=== PATIENT | male | born 1975 | race Caucasian/White ===

== ENCOUNTER → 2017-12-20 12:49 | Outpatient (CLI) | payer BC, SELFPAY ==
--- NOTE | 2017-12-20 12:55 | RAD_ITS ---
STUDY: X-RAY CHEST REASON FOR EXAM: Male, 42 years old. Recently fighting a cold, bronchitis. History of lung cancer with right lobectomy 2011. TECHNIQUE: PA and lateral views of the chest. COMPARISON: Upright AP and lateral chest x-ray March 17, 2016. FINDINGS: Right peritracheal/medial upper lobe clips and sutures again noted. There is stable elevation of right diaphragm and right apical pleural thickening. Right suprahilar patchy density that may be chronic postsurgical change or crowding is stable. Density related to hypertrophic calcification at the left first costal cartilage again projects over the left apex on the frontal view. No new infiltrate. There is no demonstrated pleural abnormality. Normal size heart. Mild rightward shift of the upper mediastinum is unchanged. Normal visualized pulmonary arteries. Normal visualized aortic arch and descending thoracic aorta. Normal visualized thoracic spine. Normal visualized ribs, clavicles, and shoulders. There are numerous fluid levels in the area of the hepatic flexure, which may reflect liquid fecal material in the colon versus mild ileus. RAD/Chest PA and Lateral IMPRESSION: 1. Stable post surgical changes in the right hemithorax, as described. No new infiltrate. 2. Liquid fecal material in the colon at the hepatic flexure versus mild colonic ileus. Electronically Signed: Miguel Angel Bardales MD at 14:25 EDT , Service support ,
== END ==
PROVIDERS: Family Provider Family Medicine; PCP Family Medicine; Referring Provider Family Medicine; Visit Provider Family Medicine
DX: J45.909 Unspecified asthma, uncomplicated (principal)
CPT/HCPCS: 71046

== ENCOUNTER 2018-07-19 09:38 | Outpatient (RCR) | payer BC, SELFPAY ==
--- NOTE | 2018-07-19 12:18 | HP.PTEVAL ---
Patient's Visit Information LOUIE PETTIT is a 43 year old M referred to Physical Therapy by DEEP LUCIO with a diagnosis of MALIGNANT NEOPLASM OF RIGHT LUNG METASTIC ,PHYSICAL DECONDITIONING. Date of Evaluation: 07/19/18 Physical Therapist: Sathish Azar PT, Cert MDT, OCS - Visit Plan Frequency: 2x /Week Duration: 6 Weeks Plan: GRADED STRENGTHENING EXERCISES QUADS/HAMS/HIP,BLANCE PROGRAM,ENDURANCE ROGRAM - Subjective Findings: This 43 y/o male presents to physical therapy with malignant neoplasm of right lung metastic . Patient developed lung CA 9 years ago then metastsis to femur,hips,back and brain 201. Patient had lobectomy 2011,craniotomy 2013 to remove CA. Patient has been under extensive chemotherapy,radiation. Currently,takng one chemo pill. Patient has also had gamanive. Patient is currently experienced general weakness ,poor endurance impairs ADL'S ,housework tasks and job. Patient becomes SOB with general activity example steps at home. Denies parathesia/tingling. Patient slleping okay at night. Patient has C-PAP. Patientcurrent condition affects QOL and function. SOCIAL: . VOCATION: [employer] - Objective POSTURE: WFL. GAIT: reciprocal pattern mikld unsteady. NEURO: INTACT. BALANCE: good-. FLEXABLITY: mod tight hams. SLS: poor difficulty. MMT: quads/hams 4-/5,hip flexon /abd 4-/5 ,adia 4/5. STAIRS: alternating with rail - Balance Scores Functional Gait Assessment Score: 18 % Disability: 40.0000 CATSIB Score (Max score 120 seconds): 95 - Goals Goal 1:: Independant with HEP. Goal Time Frame: 4-6 Weeks Goal 2:: Improve functional endurance to good- with less SOB Goal Time Frame: 4-6 Weeks Goal 3:: Patient increase strength BLE 4/5 to improve function. Goal Time Frame: 4-6 Weeks Goal 4:: Patient improve functional gaits assessment score by 5-8 points to improve balance and gait Goal Time Frame: 4-6 Weeks Goal 5:: Patient to improve LFES score by 5-10 points to improve QOL. - Rehabilitation Potential Physical Therapy Diagnosis: This patient has multiple comorbities with lung CA with metastatic with poor endurance with [place] with activity ,weakness ,decrease balance impairs ADL's ,job demands ,housework tasks thus benifit from skilled PT. Rehabilitation Potential: Good - Anticipated Interventions Patient/Client Instruction: Educate patient on: Condition, Plan of Care For the Purpose of:: To improve muscle performance and motor function, To improve ability to perform ADL's, To increase tolerance to activity/condition/position, To improve performance and independence with ADL's, To improve ability of physical actions for home/community/work/leisure, To improve gait and locomotor functions, To improve ability to perform tasks related to life management Therapeutic Exercise to Include: Strength training, Endurance training, Balance training, Body mechanics, Flexibilty training For the Purpose of:: To decrease pain, To improve muscle performance and motor function, To improve ability to perform ADL's, To increase tolerance to activity/condition/position, To improve performance and independence with ADL's, To improve ability of physical actions for home/community/work/leisure, To improve gait and locomotor functions, To increase flexibility/ROM, To improve endurance, To improve ability to perform tasks related to life management Thank you for the opportunity to evaluate your patient. For Medicare and Medicare HMO plans, please review the plan of care and approve it. It will need to be FAXED BACK to us at [phone] for Medicare purposes. For Medicare only, by signing this I certify the plan of care. Please let me know if there are questions or concerns regarding this plan of care. Physician Signature: Date:
--- NOTE | 2018-09-19 09:57 | HP.PTDCNRP_ITS ---
HP - Discharge Summary (1) - Patient Information LOUIE PETTIT was seen in my office for initial evaluation on 07/19/18. The following Plan of Care was established for this patient: Initial Frequency: 2x /Week Initial Duration: 6 Weeks - Anticipated Interventions Patient/Client Instruction: Educate patient on: Condition, Plan of Care For the Purpose of:: To improve muscle performance and motor function, To improv e ability to perform ADL's, To increase tolerance to activity/condition/position, To improve performance and independence with ADL's, To improve ability of physical actions for home/community/work/leisure, To improve gait and locomotor functions, To improve ability to perform tasks related to life management Therapeutic Exercise to Include: Strength training, Endurance training, Balance training, Body mechanics, Flexibilty training For the Purpose of:: To decrease pain, To improve muscle performance and motor function, To improve ability to perform ADL's, To increase tolerance to activity/condition/position, To improve performance and independence with ADL's, To improve ability of physical actions for home/community/work/leisure, To improve gait and locomotor functions, To increase flexibility/ROM, To improve endurance, To improve ability to perform tasks related to life management This patient was last seen in our office . Pertinent comments regarding their Physical therapy will appear below: Patient was seen for PT for Intial PT evaluation for HEP received approval but didn't return. At this point I will be discontinuing this patient from physical therapy. I would be happy to see this patient again in the future if found appropriate by the physician. Thank you! Sathish Azar, PT, Cert MDT, OCS
== END 2018-07-19 19:00 | disposition home or self-care (01) ==
LOC: PT 09:38
PROVIDERS: Family Provider Family Medicine; PCP Family Medicine
DX: C34.91 Malignant neoplasm of unspecified part of right bronchus or lung (principal); R53.81 Other malaise
CPT/HCPCS: 97110; 97162

== ENCOUNTER → 2018-09-25 | Outpatient (CLI) | payer BC, SELFPAY ==
[2016-03-17 03:34] VITALS: BMI 47.1
== END | disposition home or self-care (01) ==
LOC: LABSPEC 09-26 10:23
PROVIDERS: Family Provider Family Medicine; PCP Family Medicine; Referring Provider Family Medicine; Visit Provider Family Medicine
DX: N39.0 Urinary tract infection, site not specified (principal)
CPT/HCPCS: 87077; 87086; 87088; 87186

== ENCOUNTER → 2019-04-17 | Outpatient (CLI) | payer BC, SELFPAY ==
[2019-04-17 09:55] LABS: Partial Thromboplast Time 38.6 Seconds (24.1-36.2)
== END | disposition home or self-care (01) ==
LOC: LAB 09:23
PROVIDERS: PCP Family Medicine
DX: R79.1 Abnormal coagulation profile (principal)
CPT/HCPCS: 36415; 85730

== ENCOUNTER → 2019-07-27 | Outpatient (CLI) | payer BC, SELFPAY ==
[2016-03-17 03:34] VITALS: BMI 47.1
[2019-07-27 09:40] LABS: Absolute Lymphocyte Count 0.98 X10^3/uL (0.83-4.51); Basophil# 0.02 X10^3/uL; Basophil% 0.6 % (0-1); Color, Urine Yellow (Yellow); Eosinophils% 2.9 % (0-5); Glucose, Dipstick Normal (Normal); Hematocrit 38.6 % (40-54); Hemoglobin 12.4 g/dL (13.0-16.5); Ketone-Dipstick Negative (Negative); Leukocyte Esterase-Dipstick 25 /ul (Negative); Lymphocyte # 0.98 X10^3/ul (4.0); Lymphocyte % 28.2 % (19-41); Mean Corp Hgb Conc 32.1 g/dL (32-36); Mean Corpuscular Hgb 31.3 pg (27.0-32.0); Mean Corpuscular Volume 97.5 fL (80-94); Mean Platelet Vol. 9.7 fl (6.2-12.0); Monocyte# 0.33 X10^3/uL; Monocyte% 9.5 % (0-10); NRBC Flagged by Analyzer 0 % (0-5); Neutrophil # 2.04 X10^3/uL (2.7-7.7); Neutrophil % 58.5 % (47-70); Nitrite-Dipstick Negative (Negative); Occult Blood-Urine Negative /ul (Negative); Platelet Count 182 K/mm3 (150-450); Protein-Dipstick Negative (Negative); RBC Distribution Width CV 13.1 % (11.6-14.6); RBC Distribution Width SD 46.4 fl (35.1-43.9); Red Blood Count 3.96 M/mm3 (4.6-6.2); Urine Bilirubin Dipstick Negative (Negative); Urine Clarity Sl. Cloudy (Clear); Urine Urobilinogen Normal (Normal); White Blood Count 3.5 K/mm3 (4.4-11.0)
[2019-07-27 10:12] LABS: ALB/GLOB Ratio 1.1 RATIO (0.9-2.4); AST(SGOT) 25 U/L (15-37); Alanine Aminotransfer ALT/SGPT 30 U/L (16-61); Albumin, Serum 3.9 g/dL (3.2-5.0); Alkaline Phosphatase 84 U/L (45-117); Anion Gap 5 (5-15); BUN 18 mg/dL (7-18); Calcium,Total 8.9 mg/dL (8.5-10.1); Chloride 111 mmol/L (98-107); EST Glomerular Filtration Rate 87 mL/min (>60); Est Glom Filt Rate - Afr Amer 105 mL/min (>60); Globulin 3.5 g/dL (2.2-4.2); Glucose 86 mg/dL (74-106); LDH 177 U/L (87-241); Magnesium 2.4 mg/dL (1.6-2.6); Phosphorus 3.8 mg/dL (2.5-4.9); Potassium 4.1 mmol/L (3.5-5.1); Protein, Total 7.4 g/dL (6.4-8.2); Sodium Level 146 mmol/L (136-145); Uric Acid 5.4 mg/dL (3.5-7.2)
== END | disposition home or self-care (01) ==
PROVIDERS: PCP Family Medicine
DX: C34.91 Malignant neoplasm of unspecified part of right bronchus or lung (principal); Z51.11 Encounter for antineoplastic chemotherapy; Z00.6 Encounter for examination for normal comparison and control in clinical research program
CPT/HCPCS: 36415; 80053; 81002; 83615; 83735; 84100; 84550; 85025

== ENCOUNTER → 2019-09-17 | Outpatient (CLI) | payer BC, SELFPAY ==
[2016-03-17 03:34] VITALS: BMI 47.1
[2019-09-17 08:21] LABS: Absolute Lymphocyte Count 1.17 X10^3/uL (0.83-4.51); Absolute Neutrophil Count 2.9 X10^3/uL (2.0-7.7); Basophil# 0.02 X10^3/uL; Basophil% 0.4 % (0-1); Eosinophil# 0.11 X10^3/uL; Eosinophils% 2.4 % (0-5); Hematocrit 37.8 % (40-54); Hemoglobin 12.1 g/dL (13.0-16.5); Lymphocyte # 1.17 X10^3/ul (4.0); Lymphocyte % 25.1 % (19-41); Mean Corpuscular Hgb 31.9 pg (27.0-32.0); Mean Corpuscular Volume 99.7 fL (80-94); Mean Platelet Vol. 9.9 fl (6.2-12.0); Monocyte# 0.44 X10^3/uL; Monocyte% 9.4 % (0-10); NRBC Flagged by Analyzer 0 % (0-5); Neutrophil # 2.92 X10^3/uL (2.7-7.7); Neutrophil % 62.5 % (47-70); Platelet Count 168 K/mm3 (150-450); RBC Distribution Width CV 13.2 % (11.6-14.6); RBC Distribution Width SD 46.8 fl (35.1-43.9); Red Blood Count 3.79 M/mm3 (4.6-6.2); White Blood Count 4.7 K/mm3 (4.4-11.0)
[2019-09-17 08:45] LABS: Color, Urine Yellow (Yellow); Glucose, Dipstick Normal (Normal); Ketone-Dipstick Negative (Negative); Leukocyte Esterase-Dipstick Negative /ul (Negative); Nitrite-Dipstick Negative (Negative); Occult Blood-Urine Negative /ul (Negative); Protein-Dipstick Negative (Negative); Urine Bilirubin Dipstick Negative (Negative); Urine Clarity Sl. Cloudy (Clear); Urine Urobilinogen Normal (Normal)
[2019-09-17 09:04] LABS: ALB/GLOB Ratio 1.1 RATIO (0.9-2.4); AST(SGOT) 21 U/L (15-37); Alanine Aminotransfer ALT/SGPT 29 U/L (16-61); Albumin, Serum 3.7 g/dL (3.2-5.0); Alkaline Phosphatase 82 U/L (45-117); Anion Gap 4 (5-15); BUN 13 mg/dL (7-18); BUN/Creat Ratio 11.9 RATIO (10-20); Calcium,Total 8.9 mg/dL (8.5-10.1); Chloride 108 mmol/L (98-107); Creatinine, Serum 1.09 mg/dL (0.70-1.30); EST Glomerular Filtration Rate 79 mL/min (>60); Est Glom Filt Rate - Afr Amer 95 mL/min (>60); Globulin 3.5 g/dL (2.2-4.2); Glucose 114 mg/dL (74-106); LDH 193 U/L (87-241); Magnesium 2.6 mg/dL (1.6-2.6); Phosphorus 4.1 mg/dL (2.5-4.9); Potassium 4.1 mmol/L (3.5-5.1); Protein, Total 7.2 g/dL (6.4-8.2); Sodium Level 140 mmol/L (136-145); Uric Acid 5.2 mg/dL (3.5-7.2)
== END | disposition home or self-care (01) ==
LOC: LAB 07:38
PROVIDERS: PCP Family Medicine
DX: C34.91 Malignant neoplasm of unspecified part of right bronchus or lung (principal)
CPT/HCPCS: 36415; 80053; 81002; 83615; 83735; 84100; 84550; 85025

== ENCOUNTER → 2020-01-07 16:48 | Outpatient (CLI) | payer BC, SELFPAY ==
[2016-03-17 03:34] VITALS: BMI 47.1
[2020-01-07 17:45] LABS: Absolute Lymphocyte Count 1.15 X10^3/uL (0.83-4.51); Absolute Neutrophil Count 2.8 X10^3/uL (2.0-7.7); Basophil# 0.03 X10^3/uL; Basophil% 0.7 % (0-1); Eosinophils% 2.2 % (0-5); Hematocrit 37.2 % (40-54); Lymphocyte # 1.15 X10^3/ul (4.0); Lymphocyte % 25.5 % (19-41); Mean Corp Hgb Conc 32.3 g/dL (32-36); Mean Corpuscular Hgb 32.4 pg (27.0-32.0); Mean Corpuscular Volume 100.5 fL (80-94); Mean Platelet Vol. 9.7 fl (6.2-12.0); Monocyte# 0.45 X10^3/uL; NRBC Flagged by Analyzer 0 % (0-5); Neutrophil # 2.77 X10^3/uL (2.7-7.7); Neutrophil % 61.4 % (47-70); Platelet Count 212 K/mm3 (150-450); RBC Distribution Width CV 12.5 % (11.6-14.6); RBC Distribution Width SD 45.9 fl (35.1-43.9); White Blood Count 4.5 K/mm3 (4.4-11.0)
[2020-01-07 18:10] LABS: Color, Urine Yellow (Yellow); Glucose, Dipstick Normal (Normal); Ketone-Dipstick Negative (Negative); Leukocyte Esterase-Dipstick 500 /ul (Negative); Nitrite-Dipstick Negative (Negative); Occult Blood-Urine Negative /ul (Negative); Protein-Dipstick Negative (Negative); Urine Bilirubin Dipstick Negative (Negative); Urine Clarity Sl. Cloudy (Clear); Urine Urobilinogen Normal (Normal)
[2020-01-07 18:23] LABS: AST(SGOT) 23 U/L (15-37); Alanine Aminotransfer ALT/SGPT 27 U/L (16-61); Albumin, Serum 3.8 g/dL (3.2-5.0); Anion Gap 7 (5-15); BUN/Creat Ratio 18.8 RATIO (10-20); EST Glomerular Filtration Rate 86 mL/min (>60); Est Glom Filt Rate - Afr Amer 104 mL/min (>60); Globulin 3.7 g/dL (2.2-4.2); Magnesium 2.5 mg/dL (1.6-2.6)
[2020-01-08 09:30] LABS: Alkaline Phosphatase 85 U/L (45-117); BUN 18 mg/dL (7-18); Calcium,Total 8.9 mg/dL (8.5-10.1); Chloride 111 mmol/L (98-107); Creatinine, Serum 1.02 mg/dL (0.70-1.30); Glucose 85 mg/dL (74-106); LDH 221 U/L (87-241); Phosphorus 3.5 mg/dL (2.5-4.9); Potassium 4.7 mmol/L (3.5-5.1); Protein, Total 7.6 g/dL (6.4-8.2); Sodium Level 144 mmol/L (136-145); Uric Acid 5.9 mg/dL (3.5-7.2)
== END ==
PROVIDERS: PCP Family Medicine
DX: Z51.11 Encounter for antineoplastic chemotherapy (principal); Z00.6 Encounter for examination for normal comparison and control in clinical research program
CPT/HCPCS: 36415; 80053; 81002; 83615; 83625; 83735; 84100; 84550; 85025; 85049

== ENCOUNTER → 2021-01-30 10:57 | Outpatient (CLI) | payer BC, SELFPAY ==
[2021-01-30 12:18] LABS: Color, Urine Yellow (Yellow); Glucose, Dipstick Normal (Normal); Hematocrit 33.3 % (40-54); Hemoglobin 10.9 g/dL (13.0-16.5); Ketone-Dipstick Negative (Negative); Leukocyte Esterase-Dipstick Negative /ul (Negative); Mean Corp Hgb Conc 32.7 g/dL (32-36); Mean Corpuscular Hgb 31.8 pg (27.0-32.0); Mean Corpuscular Volume 97.1 fL (80-94); Mean Platelet Vol. 9.8 fl (6.2-12.0); Nitrite-Dipstick Negative (Negative); Occult Blood-Urine Negative /ul (Negative); Platelet Count 173 K/mm3 (150-450); Protein-Dipstick Negative (Negative); RBC Distribution Width CV 12.6 % (11.6-14.6); RBC Distribution Width SD 44.3 fl (35.1-43.9); Red Blood Count 3.43 M/mm3 (4.6-6.2); Urine Bilirubin Dipstick Negative (Negative); Urine Clarity Sl. Cloudy (Clear); Urine Urobilinogen Normal (Normal)
[2021-01-30 12:50] LABS: Vitamin B12 298 pg/mL (211-911)
[2021-01-30 13:00] LABS: AST(SGOT) 25 U/L (15-37); Alanine Aminotransfer ALT/SGPT 30 U/L (16-61); Albumin, Serum 3.9 g/dL (3.2-5.0); Alkaline Phosphatase 72 U/L (45-117); Anion Gap 4 (5-15); BUN 16 mg/dL (7-18); BUN/Creat Ratio 15.5 RATIO (10-20); Calcium,Total 9.1 mg/dL (8.5-10.1); Chloride 104 mmol/L (98-107); Creatinine, Serum 1.03 mg/dL (0.70-1.30); EST Glomerular Filtration Rate 83 mL/min (>60); Est Glom Filt Rate - Afr Amer 101 mL/min (>60); Globulin 3.8 g/dL (2.2-4.2); Glucose 87 mg/dL (74-106); Magnesium 2.5 mg/dL (1.6-2.6); Phosphorus 4.1 mg/dL (2.5-4.9); Potassium 4.2 mmol/L (3.5-5.1); Protein, Total 7.7 g/dL (6.4-8.2); Sodium Level 140 mmol/L (136-145); Uric Acid 5.7 mg/dL (3.5-7.2)
== END ==
PROVIDERS: PCP Family Medicine
DX: C34.91 Malignant neoplasm of unspecified part of right bronchus or lung (principal); Z00.6 Encounter for examination for normal comparison and control in clinical research program
CPT/HCPCS: 36415; 80053; 81002; 82607; 82746; 83735; 84100; 84550; 85027

== ENCOUNTER 2021-03-26 10:03 | Outpatient (CLI) | payer BC, SELFPAY ==
[2021-03-26 13:56] LABS: Anion Gap 5 (5-15); Chloride 107 mmol/L (98-107); Potassium 4.4 mmol/L (3.5-5.1); Sodium Level 141 mmol/L (136-145)
== END 2021-03-26 23:59 | disposition short-term general hospital (02) ==
LOC: LAB 10:07
PROVIDERS: PCP Family Medicine; Referring Provider Internal Medicine Pulmonary Disease; Visit Provider Internal Medicine Pulmonary Disease
DX: G47.33 Obstructive sleep apnea (adult) (pediatric) (principal)
CPT/HCPCS: 36415; 80051

== ENCOUNTER 2021-08-05 17:46 | Emergency (ER) | payer BC, SELFPAY ==
[2021-08-05 17:48] VITALS: BP 119/69; PULSE 86; RESP 16; TEMP 36.2; O2SAT 98; BMI 51.7
[2021-08-05 18:43] LABS: Mucous, Urine 0 SEEN /hpf (<or=2+); Red Blood Cells-Urine 0 SEEN /hpf (0-5)
--- NOTE | 2021-08-05 18:50 | RAD_ITS ---
STUDY: X-RAY CHEST REASON FOR EXAM: Male, 46 years old. CAD TECHNIQUE: 1 view COMPARISON:12/20/2017 FINDINGS: Persistent opacification of the right mid to lower hemithorax. Stable volume loss in the right lung. These are unchanged. Left lung clear. Cardiac silhouette is grossly unchanged. Multilevel thoracic spondylosis. RAD/Chest 1 View (Portable) IMPRESSION: No significant interval change Electronically Signed: Tanmay Truong MD at 19:20 EDT ,
[2021-08-05 18:51] LABS: Absolute Lymphocyte Count 1.29 X10^3/uL (0.83-4.51); Absolute Neutrophil Count 2.9 X10^3/uL (2.0-7.7); Basophil# 0.02 X10^3/uL; Basophil% 0.4 % (0-1); Eosinophil# 0.09 X10^3/uL; Eosinophils% 1.9 % (0-5); Hemoglobin 10.9 g/dL (13.0-16.5); Lymphocyte # 1.29 X10^3/ul (0.83-4.51); Lymphocyte % 26.5 % (19-41); Mean Corpuscular Volume 96.8 fL (80-94); Mean Platelet Vol. 10.2 fl (6.2-12.0); Monocyte# 0.54 X10^3/uL; Monocyte% 11.1 % (0-10); NRBC Flagged by Analyzer 0 % (0-5); Neutrophil % 59.7 % (47-70); Platelet Count 196 K/mm3 (150-450); RBC Distribution Width CV 12.4 % (11.6-14.6); RBC Distribution Width SD 43.7 fl (35.1-43.9); Red Blood Count 3.41 M/mm3 (4.6-6.2); White Blood Count 4.9 K/mm3 (4.4-11.0)
[2021-08-05 18:53] LABS: Color, Urine Yellow (Yellow); Glucose, Dipstick Normal (Normal); Ketone-Dipstick Negative (Negative); Leukocyte Esterase-Dipstick Negative /ul (Negative); Nitrite-Dipstick Negative (Negative); Occult Blood-Urine Negative /ul (Negative); Protein-Dipstick Negative (Negative); Specific Gravity, Urine 1.015 (1.002-1.030); Urine Bilirubin Dipstick Negative (Negative); Urine Clarity Clear (Clear); Urine Urobilinogen Normal (Normal)
[2021-08-05 19:11] LABS: Bacteria RARE /hpf (None Seen); Squamous Epithelial Cells - UA 0-5 SEEN /hpf (0-5); White Blood Cells 0-5 SEEN /hpf (0-5)
--- NOTE | 2021-08-05 19:20 | EDS_ITS ---
HPI History of Present Illness Chief Complaint: General Illness Narrative Narrative: Patient presents with his father because of visual hallucinations that he has been having over the last week and a half. His father relates history that the patient has known lung carcinoma with metastasis to the brain. He is in a study at the [facility] and is seen by oncologist at the [facility]. Over the last few days when they were on a trip to [place], patient expressed that he saw horses running through a field that were not there. Additionally, he asked his father who the people were standing close to him, and father states that there was no one else present. The last time he had visual hallucinations was when he was on dexamethasone years ago. Patient denies any headache. No metabolic symptoms. He denies any dysuria or hematuria. No fever or chills. No cough. No headaches. His father states that they spoke with the oncology nurse at the office and were told to come to the emergency department for a work-up to see the cause of his visual hallucinations. He used to take Lamictal and Keppra for seizures, but they recently stopped the Lamictal secondary to tremors. Additionally, he is on a study chemotherapy drug. They were told that the medication changes should not affect him and cause him to have any visual hallucinations. [facility] Medical History Lung cancer metastatic to brain Home Medications Entrectinib 200 mg PO TID 08/23/15 [History Last Taken Unknown] calcium carbonate-vitamin D3 1 tab PO DAILY 08/23/15 [History Last Taken Unknown] potassium chloride [K-Dur] 2 tab PO DAILY 08/23/15 [History Last Taken Unknown] levetiracetam 1,500 mg PO BREAKFAST 02/23/16 [History Last Taken Unknown] levetiracetam 2,000 mg PO QHS 08/05/21 [History Last Taken Unknown] omeprazole 20 mg PO DAILY 08/05/21 [History Last Taken Unknown] Allergy/AdvReac Type Severity Reaction Status Date / Time diclofenac [Diclofenac] Allergy Unknown Verified 08/05/21 17:47 diphenhydramine HCl Allergy Unknown Verified 08/05/21 17:47 [From Benadryl] shellfish derived Allergy Unknown Verified 08/05/21 17:47 Social History Smoking Status: Never smoker ROS ROS ED ROS Narrative Constitutional: No fever, no chills. HEENT: No sore throat. No neck pain. No loss of vision. No rhinorrhea. Cardiovascular: No chest pain. No palpitations. No pedal edema. Respiratory: No cough, no shortness of breath. Abdominal: No abdominal pain. No nausea. No vomiting. Genitourinary: No dysuria. No hematuria. Musculoskeletal: No myalgias. No arthralgias. Neurologic: No headaches. No dizziness. No lightheadedness. Skin: No rash. No change in color. Psychiatric: No depression. No anxiety. Visual hallucinations. EXAM Physical Exam Narrative Exam Narrative: Afebrile. Vital signs noted. HEENT: Normocephalic. Atraumatic. PERRL, EOMI. Neck soft and supple. No point tenderness or step off. Cardiovascular: Regular rate and rhythm. No murmurs, rubs, or gallops appreciated. Respiratory: No tachypnea. Lungs clear to auscultation bilaterally. Gastrointestinal: Abdomen soft, nontender, with normoactive bowel sounds. No rebound or guarding. Neurological: Awake. Alert. Nonfocal, nonlateralizing. At baseline per father. Skin: No rash. Normal color. No pallor. Musculoskeletal: No pedal edema. Full range of motion extremities. Const Vital Signs: 08/05/21 17:48 08/05/21 18:07 Temperature 97.2 F L Temperature Source Temporal Pulse Rate 86 Respiratory Rate 16 Respiratory Effort Normal Non-Labored Blood Pressure 119/69 Blood Pressure Mean 85 Pulse Ox 98 Oxygen Delivery Method Room Air MDM MDM MDM Narrative Medical decision making narrative: Metabolic work-up was pursued. I lengthy discussion with the patient and his father. His father is very reluctant to have him have a CT of the brain because he states that he has MRI scans every 2 months. CBC is grossly normal with a normal white count of 4.9, hemoglobin slightly anemic at 10.9, normal platelet count of 196. Urinalysis shows no evidence of infection. Chest x-ray of by myself shows no acute process. CMP shows chloride elevated at 108 with normal anion gap of 6, BUN slightly elevated at 19 with a creatinine of 1.0. LFTs are grossly unremarkable. I had a lengthy discussion with the patient and his father. He has had multiple imaging studies. It was decided that CT of the brain was not indicated because there is no emergent cause. I do not think that he has a bleeding metastasis. Additionally, he had an MRI of the brain 2 weeks ago, and his symptoms began 1 week ago. He is not eliciting any signs of hemorrhagic stroke, and his neurological examination is nonfocal and nonlateralizing. At this point in time, he would like to be discharged. I did discuss with the GI fellow who is covering oncology services at [facility] the work-up. He agreed that this is reasonable, and that the patient should follow-up with his oncologist tomorrow. Return instructions to the emergency department were reviewed. Disposition is discharged home in stable condition. Lab Data Attestation: I reviewed the patient's lab results. Labs: Laboratory Results - last 24 hr 08/05/21 08/05/21 08/05/21 18:29 18:39 18:39 WBC 4.9 RBC 3.41 L Hgb 10.9 L Hct 33.0 L MCV 96.8 H MCH 32.0 MCHC 33.0 RDW Std Deviation 43.7 RDW Coeff of Maryse 12.4 Plt Count 196 MPV 10.2 Immature Gran % (Auto) 0.400 Neut % (Auto) 59.7 Lymph % (Auto) 26.5 Citrus % (Auto) 11.1 H Eos % (Auto) 1.9 Baso % (Auto) 0.4 Absolute Neuts (auto) 2.9 Absolute Lymphs (auto) 1.29 Nucleated RBC % 0 Sodium 143 Potassium 4.5 Chloride 108 H Carbon Dioxide 29.0 Anion Gap 6 BUN 19 H Creatinine 1.08 Estim Creat Clear Calc 87.28 Est GFR (MDRD) Af Amer 95 Est GFR (MDRD) Non-Af 79 BUN/Creatinine Ratio 17.6 Glucose 91 Calcium 9.0 Total Bilirubin 0.40 AST 35 ALT 39 Alkaline Phosphatase 75 Total Protein 7.6 Albumin 3.9 Globulin 3.7 Albumin/Globulin Ratio 1.1 Urine Color Yellow Urine Clarity Clear Urine pH 6.0 Ur Specific [place] 1.015 Urine Protein Negative Urine Glucose (UA) Normal Urine Ketones Negative Urine Occult Blood Negative Urine Nitrite Negative Urine Bilirubin Negative Urine Urobilinogen Normal Ur Leukocyte Esterase Negative Urine RBC 0 SEEN Urine WBC 0-5 SEEN Ur Squamous Epith Cells 0-5 SEEN Urine Bacteria RARE Urine Mucus 0 SEEN Radiography Diagnostic Testing: Clinical Impression(s) from Imaging Studies Chest X-Ray 08/05/21 18:50 IMPRESSION: No significant interval change Electronically Signed: Tanmay Truong MD at 19:20 EDT , Discharge Plan Triage Chief Complaint: General Illness ED Provider: Roddy Ward Dx/Rx/DC Orders Clinical Impression: Visual hallucinations, Carcinoma of lung, Brain metastases Instructions: ED Confusion Prescriptions: No Action potassium chloride [Klor-Con M20] 20 MEQ tablet 2 tab PO DAILY RF: 0 calcium carbonate-vitamin D3 1 EACH tablet 1 tab PO DAILY RF: 0 Entrectinib 200 mg PO TID RF: 0 levetiracetam 500 MG tablet 1,500 mg PO BREAKFAST RF: 0 omeprazole 20 mg Capsule,Delayed Release(Dr/Ec) 20 mg PO DAILY RF: 0 levetiracetam 1,000 mg Tablet 2,000 mg PO QHS RF: 0 Primary Care Provider: Med Llanes Referrals: Med Llanes MD [Primary Care Provider] - Activity Restrictions/Additional Instructions: There is no apparent cause for your visual hallucinations that you were experiencing. Your laboratory work was grossly unremarkable. There were no signs of infection. Follow-up with the Sathish tomorrow. Call your oncologist. Disposition Disposition: Home, Self Care
[2021-08-05 19:27] LABS: ALB/GLOB Ratio 1.1 RATIO (0.9-2.4); AST(SGOT) 35 U/L (15-37); Alanine Aminotransfer ALT/SGPT 39 U/L (16-61); Albumin, Serum 3.9 g/dL (3.2-5.0); Alkaline Phosphatase 75 U/L (45-117); Anion Gap 6 (5-15); BUN 19 mg/dL (7-18); BUN/Creat Ratio 17.6 RATIO (10-20); Chloride 108 mmol/L (98-107); Creatinine, Serum 1.08 mg/dL (0.70-1.30); EST Glomerular Filtration Rate 79 mL/min (>60); Est Glom Filt Rate - Afr Amer 95 mL/min (>60); Estimated Creatinine Clearance 87.28 ml/min; Globulin 3.7 g/dL (2.2-4.2); Glucose 91 mg/dL (74-106); Potassium 4.5 mmol/L (3.5-5.1); Protein, Total 7.6 g/dL (6.4-8.2); Sodium Level 143 mmol/L (136-145)
== END 2021-08-05 19:52 | disposition home or self-care (01) ==
PROVIDERS: Emergency Provider Emergency Medicine; PCP Family Medicine; Visit Provider Emergency Medicine
DX: R44.1 Visual hallucinations (principal); C79.31 Secondary malignant neoplasm of brain; C34.90 Malignant neoplasm of unspecified part of unspecified bronchus or lung; R56.9 Unspecified convulsions; Z79.899 Other long term (current) drug therapy
CPT/HCPCS: 71045; 80053; 81001; 85025; 96360; 99282; J7030; A4216

== ENCOUNTER 2021-10-01 15:49 | Emergency (ER) | payer BC, SELFPAY ==
[2021-10-01 15:50] VITALS: BP 120/74; PULSE 82; RESP 16; TEMP 36.4; O2SAT 98; BMI 36.4
--- NOTE | 2021-10-01 16:05 | CT_ITS ---
STUDY: CT BRAIN WITHOUT CONTRAST REASON FOR EXAM: Male, 46 years old. head injury RADIATION DOSAGE (If Supplied By Facility): CTDIvol = ( 44.99 ) mGy, DLP = ( 762.36 ) mGycm TECHNIQUE: Transaxial CT imaging of the brain was performed without administration of intravenous contrast material. Individualized dose optimization techniques were used for this CT. COMPARISON: No relevant priors. FINDINGS: Normal soft tissue structures. Postop change status post right frontal parietal craniectomy and right occipital craniotomy There is diffuse hypoattenuation in the right parietal lobe which has the appearance of vasogenic edema without well-defined focal mass.. There is prominent calcification which appears vascular in the right occipital lobe and to a lesser extent the left occipital lobe. Normal size ventricles and extra-axial spaces for the patient''s age. Normal white matter tracts of the cerebral hemispheres. 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 Normal brainstem. Hypoattenuation in the right cerebellar hemisphere likely postsurgical encephalomalacia There is no intracranial hemorrhage. There are no findings of an acute ischemic infarction. Normal visualized paranasal sinuses. CT/Brain/Head without Contrast IMPRESSION: Findings consistent with probable right cerebellar postsurgical encephalomalacia Vasogenic edema in the right parietal lobe without well-defined mass Apparent tubular vascular calcification in the occipital lobes more pronounced on the right of indeterminate etiology. No evidence for acute bleed Electronically Signed: Eddie Roman MD at 17:18 EDT ,
--- NOTE | 2021-10-01 16:05 | EDS_ITS ---
HPI <SANTA Garg - Last Filed: 10/01/21 17:41> History of Present Illness Chief Complaint: Head Injury Narrative Narrative: 46-year-old male with history of lung cancer that spread to his brain who is currently receiving brain cancer treatment at [facility] presents the emergency department after mechanical fall. Patient was in the bathroom, he believes he slipped, falling forward striking his left front part of his head on the floor. Patient states he was dazed however he did not have any loss of consciousness. Patient also complains of neck pain as well. Patient denies any blood thinners at this time. Patient is acting appropriate per the father. PFS <SANTA Garg - Last Filed: 10/01/21 17:41> [facility] Medical History (Updated 10/01/21 @ 17:41 by SANTA Garg) Lung cancer metastatic to brain Seizure Home Medications Entrectinib 200 mg PO TID 08/23/15 [History Last Taken Unknown] calcium carbonate 600 mg-vitamin D3 20 mcg (800 unit) tablet 1 tab PO DAILY 08/23/15 [History Last Taken Unknown] potassium chloride 20 mEq tablet,extended release(part/cryst) (Klor-Con M) 2 tab PO DAILY 08/23/15 [History Last Taken Unknown] levetiracetam 500 mg tablet 1,500 mg PO BREAKFAST 02/23/16 [History Last Taken Unknown] levetiracetam 1,000 mg tablet 2,000 mg PO QHS 08/05/21 [History Last Taken Unknown] omeprazole 20 mg capsule,delayed release 20 mg PO DAILY 08/05/21 [History Last Taken Unknown] Allergy/AdvReac Type Severity Reaction Status Date / Time diclofenac [Diclofenac] Allergy Unknown Verified 10/01/21 15:49 diphenhydramine HCl Allergy Unknown Verified 10/01/21 15:49 [From Benadryl] shellfish derived Allergy Unknown Verified 10/01/21 15:49 Surgical History (Updated 10/01/21 @ 16:17 by Nandini Shaw) History of brain surgery Social History Smoking Status: Never smoker ROS <SANTA Garg - Last Filed: 10/01/21 17:41> ROS ED ROS Narrative Constitutional: Negative for fever, chills, weight loss, weakness Eyes: Negative for vision loss, vision change, double vision ENT: Negative for any sore throat, ear pain, congestion Cardiovascular: Negative for any chest pain, tightness, palpitations Respiratory: Negative for any cough, sputum production, hemoptysis, dyspnea, dyspnea on exertion, orthopnea Gastrointestinal: Negative for any abdominal pain, nausea, vomiting, diarrhea, constipation, blood in stool, blood in vomit : Negative for any urinary frequency, dysuria, retention, blood in urine Muscle skeletal: Negative for any muscle joint pain, stiffness, myalgias, arthralgias, back pain. Positive for neck pain Neurological: Negative for any syncope, numbness or tingling, dizziness. Positive for headache Skin: Negative for any rashes, lumps, itching, abrasions, lacerations Psychiatric: Negative for any depression, anxiety, stress, suicidal ideation, homicidal ideation Hematologic: Negative for any easy bruising, excessive bruising, easy bleeding Allergies: Negative for any eczema, hives, rash EXAM <SANTA Garg - Last Filed: 10/01/21 17:41> Physical Exam Narrative Exam Narrative: Vital signs reviewed. Patient alert orient x4. HEET: Head normocephalic atraumatic, TMs clear bilaterally. Posterior pharynx is clear, moist mucous membranes. Nares clear bilaterally. No evidence of ecchymosis, edema. Pupils are equal round reactive to light, the left eye does show some lazy eye however this is chronic. Neck: Supple with no lymphadenopathy or tenderness. No signs of meningismus, negative jolt sign. Full range of motion of the neck. Negative for any midline spinal tenderness. Cardiac: Regular rate and rhythm no murmurs gallops or rubs, equal peripheral pulses bilaterally. Respiratory: Lungs clear to auscultation bilaterally. No chest tenderness. Abdomen: Soft, nontender, nondistended. No abdominal bruit or pulsatile masses. No hepatosplenomegaly Extremities: No peripheral edema, no signs of gross trauma or deformity. Active full range of motion of all extremities. Neuro: Cranial nerves II through XII intact, no focal neurological deficits. Skin: Clean dry and intact with no rash, purpura, petechiae, vesicles or pustules. Backs/flank: No CVA tenderness, no midline spinal tenderness, no deformity. Psych: Normal mood and affect. No SI, HI or acute psychosis. Const Vital Signs: 10/01/21 15:50 10/01/21 16:18 Temperature 97.5 F L Temperature Source Temporal Pulse Rate 82 Respiratory Rate 16 Respiratory Effort Normal Respiratory Depth Normal Respiratory Pattern Normal Blood Pressure 120/74 Blood Pressure Mean 89 Pulse Ox 98 Oxygen Delivery Method Room Air Room Air Positive well nourished and well developed General Appearance ED: well developed <Dr. Kuldeep Snell DO - Last Filed: 10/01/21 17:48> Physical Exam Const Vital Signs: 10/01/21 15:50 10/01/21 16:18 Temperature 97.5 F L Temperature Source Temporal Pulse Rate 82 Respiratory Rate 16 Respiratory Effort Normal Respiratory Depth Normal Respiratory Pattern Normal Blood Pressure 120/74 Blood Pressure Mean 89 Pulse Ox 98 Oxygen Delivery Method Room Air Room Air MDM <SANTA Garg - Last Filed: 10/01/21 17:41> MDM Radiography Diagnostic Testing: Clinical Impression(s) from Imaging Studies Brain CT 10/01/21 16:05 IMPRESSION: Findings consistent with probable right cerebellar postsurgical encephalomalacia Vasogenic edema in the right parietal lobe without well-defined mass Apparent tubular vascular calcification in the occipital lobes more pronounced on the right of indeterminate etiology. No evidence for acute bleed Electronically Signed: Eddie Roman MD at 17:18 EDT , Cervical Spine CT 10/01/21 16:05 IMPRESSION: Normal unenhanced CT examination of the cervical spine. Electronically Signed: Eddie Roman MD at 17:18 EDT , Treatment and Re-Evaluation Narrative: Patient appears well, patient appears nontoxic, vital signs are stable. Patient presents the [facility] apartment after a fall, head injury and due to the patient having brain cancer is here for imaging. Patient did receive a CT of the brain, cute bleed however patient does have chronic findings. Patient CT of the cervical spine shows a normal unenhanced CT examination of the cervical spine. Patient was offered analgesia however refused. At this time, there is no evidence of any intracranial hemorrhage, skull fracture. Patient will be discharged home, given concussion instructions, follow-up with his oncologist at [facility]. Patient is happy with the plan of care and strict return for any worsening symptoms. <Dr. Kuldeep Snell, DO - Last Filed: 10/01/21 17:48> [facility] Narrative Medical decision making narrative: I have personally performed a face to face assessment of the patient and have reviewed the WANDY Note. I performed a substantive portion of the visit including all aspects of the following. My hunter findings include: History is [patient presents to the emergency department after sustaining a fall this morning in the bathroom approximately 8 AM. Patient's father states that he has trouble with balance normally because he has a history of lung cancer with brain metastasis. Patient try to catch himself with his hands but thinks he hit the front of his head either on the floor the cabinets leading to the floor. He called his oncologist and was advised to be seen in the emergency department. He complains of a frontal headache and some mild discomfort in the back of his neck. He denies any paresthesias to his extremities. He denies any significant injuries to his arms or legs or chest.] Exam is [HEENT-PERRLA, EOMI. Cranial nerves II through XII grossly intact. TMs clear. Mucous membranes moist. No adenopathy. No external evidence of trauma to his head. Patient has some mild diffuse tenderness to the C-spine. No bony step-offs noted. Good range of motion. Cardiovascular-regular rate and rhythm without murmur or ectopy Lungs-clear to auscultation, chest wall stable without crepitus or subcu emphysema Abdomen-normoactive bowel sounds, soft, and nontender. Extremities-intact ?4, normal range of motion, normal pulses, atraumatic] Medical Decison Making [patient was seen in conjunction with physician teaching assistant. At this point his CT of the brain and C-spine were unremarkable. He can be safely discharged to home. Patient to follow-up with his primary care physician in 3 to 5 days.] Other additions or changes: [None] Radiography Diagnostic Testing: Clinical Impression(s) from Imaging Studies Brain CT 10/01/21 16:05 IMPRESSION: Findings consistent with probable right cerebellar postsurgical encephalomalacia Vasogenic edema in the right parietal lobe without well-defined mass Apparent tubular vascular calcification in the occipital lobes more pronounced on the right of indeterminate etiology. No evidence for acute bleed Electronically Signed: Eddie Roman MD at 17:18 EDT , Cervical Spine CT 10/01/21 16:05 IMPRESSION: Normal unenhanced CT examination of the cervical spine. Electronically Signed: Eddie Roman MD at 17:18 EDT , Discharge Plan Triage Chief Complaint: Head Injury ED Midlevel Provider: Ritchie Porras ED Provider: Kuldeep Snell Dx/Rx/DC Orders Clinical Impression: Fall, Closed head injury, Concussion, Cervical muscle strain, History of brain cancer Instructions: After a Concussion, ED Head Injury (Adult), ED Neck Sprain or Strain Prescriptions: No Action potassium chloride [Klor-Con M20] 20 MEQ tablet 2 tab PO DAILY calcium carbonate-vitamin D3 1 EACH tablet 1 tab PO DAILY Entrectinib 200 mg PO TID levetiracetam 500 MG tablet 1,500 mg PO BREAKFAST omeprazole 20 mg Capsule,Delayed Release(Dr/Ec) 20 mg PO DAILY levetiracetam 1,000 mg Tablet 2,000 mg PO QHS Primary Care Provider: Med Llanes Referrals: Med Llanes MD [Primary Care Provider] - 3-5 Days Activity Restrictions/Additional Instructions: Please follow-up outpatient. Print Language: Lao Disposition Disposition: Home, Self Care
--- NOTE | 2021-10-01 16:05 | CT_ITS ---
STUDY: CT CERVICAL SPINE WITHOUT CONTRAST REASON FOR EXAM: Male, 46 years old. fall, neck pain RADIATION DOSAGE (If Supplied By Facility): CTDIvol = ( 26.79 ) mGy, DLP = ( 513.35 ) mGycm TECHNIQUE: High resolution transaxial imaging was performed without contrast material. Sagittal and coronal images were reconstructed. Individualized dose optimization techniques were used for this CT. COMPARISON: None FINDINGS: Normal craniovertebral junction. Normal anterior atlantoaxial articulation. Normal odontoid process. Normal cervical lordosis. Normal vertebral bodies and posterior osseous elements. C2-3: Normal endplates. Normal disc height and morphology. Normal central canal and intervertebral neuroforamina. C3-4: Normal endplates. Normal disc height and morphology. Normal central canal and intervertebral neuroforamina. C4-5: Normal endplates. Normal disc height and morphology. Normal central canal and intervertebral neuroforamina. C5-6: Normal endplates. Normal disc height and morphology. Normal central canal and intervertebral neuroforamina. C6-7: Normal endplates. Normal disc height and morphology. Normal central canal and intervertebral neuroforamina. C7-T1: Normal endplates. Normal disc height and morphology. Normal central canal and intervertebral neuroforamina. Normal visualized soft tissue structures. CT/Spine Cervical without Contras IMPRESSION: Normal unenhanced CT examination of the cervical spine. Electronically Signed: Eddie Roman MD at 17:18 EDT ,
[2021-10-01 17:46] VITALS: BP 115/63; PULSE 86; RESP 18; O2SAT 92
== END 2021-10-01 17:56 | disposition home or self-care (01) ==
PROVIDERS: Emergency Provider Emergency Medicine; PCP Family Medicine; Visit Provider Emergency Medicine
DX: S06.0X0A Concussion without loss of consciousness, initial encounter (principal); C79.31 Secondary malignant neoplasm of brain; R56.9 Unspecified convulsions; S16.1XXA Strain of muscle, fascia and tendon at neck level, initial encounter; W01.198A Fall on same level from slipping, tripping and stumbling with subsequent striking against other object, initial encounter; Z79.899 Other long term (current) drug therapy; Z85.118 Personal history of other malignant neoplasm of bronchus and lung
CPT/HCPCS: 70450; 72125; 99282

== ENCOUNTER 2021-10-05 13:52 | Inpatient (IN) | payer BC, SELFPAY ==
[2021-10-05 13:53] VITALS: BP 94/58; PULSE 91; RESP 16; TEMP 36.4; O2SAT 99; BMI 39.1
--- NOTE | 2021-10-05 14:17 | EKG12_ITS ---
Test Reason : dysrhythmia Blood Pressure : / mmHG Vent. Rate : 087 BPM Atrial Rate : 087 BPM P-R Int : 182 ms QRS Dur : 078 ms QT Int : 370 ms P-R-T Axes : 034 023 047 degrees QTc Int : 445 ms Normal sinus rhythm Low voltage QRS Confirmed by MARY MARIN, DONATO ([id number]), commercial production editor DAVID MILLER ([id number]) on 10/07/2021 12:46:41 PM Referred By: Confirmed By:DONATO HERNANDEZ MD
--- NOTE | 2021-10-05 14:35 | RAD_ITS ---
STUDY: X-RAY CHEST REASON FOR EXAM: Male, 46 years old. Stroke TECHNIQUE: Single AP portable view of the chest. COMPARISON: Comparison is made with prior examination dated 08/05/2021. FINDINGS: Stable marked elevation of the right hemidiaphragm. Stable right apical pleural thickening. Surgical clips are seen in the right hilar region. The left lung is clear. Normal size heart. Normal mediastinum and shell. Normal visualized pulmonary arteries. Normal visualized aortic arch and descending thoracic aorta. Normal visualized thoracic spine. Normal visualized ribs, clavicles, and shoulders. There is no demonstrated abnormality of the visualized soft tissue structures of the upper abdomen. RAD/Chest 1 View (Portable) IMPRESSION: Elevation of the right hemidiaphragm with stable right apical pleural thickening. Surgical clips are seen in the right hilar region. Electronically Signed: Frederick Escobedo MD at 14:56 EDT ,
[2021-10-05 14:41] LABS: Absolute Lymphocyte Count 0.98 X10^3/uL (0.83-4.51); Absolute Neutrophil Count 2.9 X10^3/uL (2.0-7.7); Basophil# 0.01 X10^3/uL; Basophil% 0.2 % (0-1); Eosinophil# 0.12 X10^3/uL; Eosinophils% 2.7 % (0-5); Hematocrit 33.2 % (40-54); Hemoglobin 11.1 g/dL (13.0-16.5); Lymphocyte # 0.98 X10^3/ul (0.83-4.51); Lymphocyte % 22.2 % (19-41); Mean Corp Hgb Conc 33.4 g/dL (32-36); Mean Corpuscular Volume 95.7 fL (80-94); Mean Platelet Vol. 9.8 fl (6.2-12.0); Monocyte# 0.38 X10^3/uL; Monocyte% 8.6 % (0-10); NRBC Flagged by Analyzer 0 % (0-5); Neutrophil % 65.8 % (47-70); Platelet Count 171 K/mm3 (150-450); RBC Distribution Width CV 12.3 % (11.6-14.6); RBC Distribution Width SD 42.2 fl (35.1-43.9); Red Blood Count 3.47 M/mm3 (4.6-6.2); White Blood Count 4.4 K/mm3 (4.4-11.0)
[2021-10-05 14:48] LABS: Prothrombin Time (Protime)PT. 13.1 SECONDS (11.7-14.9)
[2021-10-05 14:49] LABS: Partial Thromboplast Time 40.9 Seconds (24.1-36.2)
[2021-10-05 14:56] VITALS: O2SAT 98
[2021-10-05 14:56] LABS: Anion Gap 3 (5-15); BUN 16 mg/dL (7-18); BUN/Creat Ratio 14.5 RATIO (10-20); Calcium,Total 8.9 mg/dL (8.5-10.1); Chloride 106 mmol/L (98-107); EST Glomerular Filtration Rate 77 mL/min (>60); Est Glom Filt Rate - Afr Amer 93 mL/min (>60); Estimated Creatinine Clearance 80.12 ml/min; Glucose 104 mg/dL (74-106); Potassium 4.3 mmol/L (3.5-5.1); Sodium Level 142 mmol/L (136-145)
--- NOTE | 2021-10-05 15:12 | EX.ED.DYSGE1 ---
HPI History of Present Illness Chief Complaint: Confusion Narrative Narrative: 46-year-old male with history of lung cancer with mets to the brain currently on chemotherapy orally presenting with confusion, per patient. Apparently the patient had a fall about a week ago and hit his head and sustained a small bruise. Patient's caregiver states that on 09 30 he had some seizure-like symptoms with some slurred speech and difficulty forming words. He has generally slow speech. He states that he has continued to have a headache and general is a little bit slow. He walks with a walker at baseline and has not had any changes with his baseline ambulation with a walker although he does exhibit some confusion. His caregiver states that he wants to walk to the bathroom with his walker and he appeared to be walking at baseline and then as he entered the bathroom he stopped and became confused and after few seconds move forward. He states that he is also been stating that he wants to go home. He gives the address of his childhood upbringing. He is also repeatedly asked when friends are over why they are here. It is noted that he had some of this cognitive confusion and similar symptoms when he had adrenal insufficiency. His cortisol levels are very low. His caregiver states that when he was in the hospital for brain cancer they kept giving him dexamethasone. They thought this was helping with the brain cancer however he states that is causing adrenal insufficiency. He states he was given manmade cortisol and this helped his symptoms. Patient has a neurologist at [facility] named . [facility] Medical History Lung cancer metastatic to brain Seizure Home Medications Entrectinib 200 mg PO BID chemotherapy 08/23/15 [History Last Taken 10/05/21] calcium carbonate 600 mg-vitamin D3 20 mcg (800 unit) tablet 2 tab PO DAILY supplement 08/23/15 [History Last Taken 10/04/21] potassium chloride 20 mEq tablet,extended release(part/cryst) (Klor-Con M) 2 tab PO DAILY supplement 08/23/15 [History Last Taken 10/05/21] levetiracetam 500 mg tablet 1,500 mg PO BREAKFAST seizures 02/23/16 [History Last Taken 10/05/21] levetiracetam 1,000 mg tablet 2,000 mg PO QHS seizures 08/05/21 [History Last Taken 10/04/21] omeprazole 20 mg capsule,delayed release 20 mg PO DAILY GERD 08/05/21 [History Last Taken 10/05/21] Allergy/AdvReac Type Severity Reaction Status Date / Time diclofenac [Diclofenac] Allergy Unknown Verified 10/05/21 13:55 diphenhydramine HCl Allergy Unknown Verified 10/05/21 13:55 [From Benadryl] shellfish derived Allergy Unknown Verified 10/05/21 13:55 Surgical History History of brain surgery Social History Smoking Status: Never smoker ROS ROS ED Constitutional Constitutional ED: Denies chills or fever(s) Eyes Eyes: Denies change in vision ENT ENT ED: Denies rhinorrhea or sore throat Cardiovascular Cardiovascular: Denies chest pain or palpitations Respiratory/Chest Respiratory/Chest: Denies cough or dyspnea Gastrointestinal Gastrointestinal: Denies abdominal pain or constipation Genitourinary Genitourinary ED: Denies dysuria or hematuria Musculoskeletal Musculoskeletal: Denies arthralgias or back pain Neurologic Neurologic: Reports headache(s) and other Details: Perseverating. Confused. ; Denies paresthesias Psychiatric Psychiatric: Denies anxiety or depression EXAM Physical Exam Const Vital Signs: 10/05/21 13:53 10/05/21 14:56 10/05/21 18:18 Temperature 97.6 F L Temperature Source Temporal Pulse Rate 91 77 Respiratory Rate 16 17 Blood Pressure 94/58 L 128/74 H Blood Pressure Mean 70 92 Pulse Ox 99 98 98 Oxygen Delivery Method Room Air Room Air Room Air Positive well nourished General Appearance ED: NAD; Negative for pallor HEENT Reports moist mucous membranes Negative for trauma Eyes PERRL and EOMs intact bilaterally Chest Wall inspection of chest normal Resp normal respiratory effort and clear to auscultation bilaterally Auscultation: Negative for rales, rhonchi or wheezes Cardio regular rate and regular rhythm GI normal to inspection, nondistended, normoactive bowel sounds Extremity normal to inspection Neuro oriented x3 and CN's II-XII intact bilaterally Sensorium / Orientation: alert Motor Exam: strength 5/5 throughout Skin no rashes or lesions noted General Skin Exam: Negative for jaundice or pallor MDM MDM MDM Narrative Medical decision making narrative: Patient was seen and evaluated on arrival for confusion. I reviewed the medical record I did see that his CT scan showed he had some right-sided vasogenic edema on his previous CT scan. I repeated the CT scan today does not show any significant interval change. Based on the history of the slurred speech and the confusion I suspect a likely source of seizure which may be subclinical. He has not had any tonic-clonic seizures, but he does have a history of seizure and is on Keppra. I obtained blood work and his CBC and BMP are unremarkable. PT and INR normal. TSH is normal. After discussing with the patient with his family they wanted to check a cortisol level which was obtained and is low at 2.60. At this point I did speak with the hospitalist who recommended transfer. I spoke with neurooncology at [facility] at length. They were concerned for subclinical seizure as well and recommended transfer so that he can have continuous EEG. He will need an MRI as well. I did discuss the cortisol level with neurology and they stated that it was about 3.4 at the last check. They were unable to find any endocrinology notes. Chest x-ray on my interpretation does not show any acute cardiopulmonary process and the radiologist agree. Discussed all findings with patient and his family. They are amenable to transfer. Impression: 1. Breakthrough seizure 2. Confusion 3. Low cortisol 4. Vasogenic edema sign 5. Perseveration Lab Data Attestation: I reviewed the patient's lab results. Labs: Laboratory Results - last 24 hr 10/05/21 10/05/21 10/05/21 14:30 14:30 14:30 WBC 4.4 RBC 3.47 L Hgb 11.1 L Hct 33.2 L MCV 95.7 H MCH 32.0 MCHC 33.4 RDW Std Deviation 42.2 RDW Coeff of Maryse 12.3 Plt Count 171 MPV 9.8 Immature Gran % (Auto) 0.500 Neut % (Auto) 65.8 Lymph % (Auto) 22.2 [place] % (Auto) 8.6 Eos % (Auto) 2.7 Baso % (Auto) 0.2 Absolute Neuts (auto) 2.9 Absolute Lymphs (auto) 0.98 Nucleated RBC % 0 PT 13.1 INR 1.0 APTT 40.9 H Sodium 142 Potassium 4.3 Chloride 106 Carbon Dioxide 33.0 H Anion Gap 3 L BUN 16 Creatinine 1.10 Estim Creat Clear Calc 80.12 Est GFR (MDRD) Af Amer 93 Est GFR (MDRD) Non-Af 77 BUN/Creatinine Ratio 14.5 Glucose 104 Calcium 8.9 TSH Cortisol 10/05/21 10/05/21 14:30 14:30 WBC RBC Hgb Hct MCV MCH MCHC RDW Std Deviation RDW Coeff of Maryse Plt Count MPV Immature Gran % (Auto) Neut % (Auto) Lymph % (Auto) [place] % (Auto) Eos % (Auto) Baso % (Auto) Absolute Neuts (auto) Absolute Lymphs (auto) Nucleated RBC % PT INR APTT Sodium Potassium Chloride Carbon Dioxide Anion Gap BUN Creatinine Estim Creat Clear Calc Est GFR (MDRD) Af Amer Est GFR (MDRD) Non-Af BUN/Creatinine Ratio Glucose Calcium TSH 1.31 Cortisol 2.60 L Radiography Diagnostic Testing: Clinical Impression(s) from Imaging Studies Chest X-Ray 10/05/21 14:35 IMPRESSION: Elevation of the right hemidiaphragm with stable right apical pleural thickening. Surgical clips are seen in the right hilar region. Electronically Signed: Frederick Escobedo MD at 14:56 EDT , Brain CT 10/05/21 15:41 IMPRESSION: No significant interval change compared to recent prior. Large region of low attenuation in the right posterior parietal and occipital lobe. Smaller region of low attenuation in the left frontal lobe. Recommend MRI without and with contrast to assess for metastases or other etiologies of edema. Electronically Signed: Lauren Terrell MD at 16:40 EDT , Discharge Plan Triage Chief Complaint: Confusion ED Provider: Natalio Alves Dx/Rx/DC Orders Prescriptions: No Action potassium chloride [Klor-Con M20] 20 MEQ tablet 2 tab PO DAILY calcium carbonate-vitamin D3 1 EACH tablet 2 tab PO DAILY Entrectinib 200 mg PO BID levetiracetam 500 MG tablet 1,500 mg PO BREAKFAST omeprazole 20 mg Capsule,Delayed Release(Dr/Ec) 20 mg PO DAILY levetiracetam 1,000 mg Tablet 2,000 mg PO QHS Primary Care Provider: Med Llanes Referrals: Med Llanes MD [Primary Care Provider] -
--- NOTE | 2021-10-05 15:41 | CT_ITS ---
HISTORY: headache, increased confusion, weakness, history of lung cancer with brain and bone metastases. TECHNIQUE: Multiple axial images were obtained of the head without intravenous contrast. A radiation dose optimization technique was used for this scan. 244 images. COMPARISON: 10/01/2021. 03/17/2016 FINDINGS: BRAIN PARENCHYMA: Large region of low attenuation probable vasogenic edema in the right parietal occipital lobe again seen. Small region of low attenuation in the left posterior frontal lobe again seen. Small calcification in the left frontal lobe more anteriorly. Cortical serpiginous calcification of the occipital lobes again seen. Old right capsular lacunar infarct. Right cerebellar encephalomalacia. No acute intra-axial hemorrhage. CSF SPACES: Mild generalized volume loss. No midline shift or other significant mass effect. No acute extra-axial hemorrhage. CALVARIUM: Right temporal and occipital craniotomies. PARANASAL SINUSES AND MASTOID AIR CELLS: Mild fluid in the left mastoid air cells. ORBITS: Unremarkable. CT/Brain/Head without Contrast IMPRESSION: No significant interval change compared to recent prior. Large region of low attenuation in the right posterior parietal and occipital lobe. Smaller region of low attenuation in the left frontal lobe. Recommend MRI without and with contrast to assess for metastases or other etiologies of edema. Electronically Signed: Lauren Terrell MD at 16:40 EDT ,
--- NOTE | 2021-10-05 15:42 | NURSING ---
DR RODRIGUEZ FOR DR SENA
[2021-10-05 16:16] LABS: Thyroid Stim Hormone (TSH) 1.31 uIU/mL (0.358-3.74)
--- NOTE | 2021-10-05 16:18 | NURSING ---
[id number] CALLED [facility], ON HOLD OVER 10 MIN
--- NOTE | 2021-10-05 16:19 | NURSING ---
CALLED [facility], TALKED TO DEDE
[2021-10-05 18:18] VITALS: BP 128/74; PULSE 77; RESP 17; O2SAT 98
--- NOTE | 2021-10-05 20:14 | NURSING ---
CALLED [facility] AT 8PM ON UPDATE, THEY SAID HE IS ACCEPTED HOWEVER THEY DO NOT THINK HE WILL HAVE A BED ASSIGNMENT TILL AT LEAST TOMORROW.
[2021-10-05 21:42] VITALS: BP 139/88; PULSE 96; RESP 16; O2SAT 98
[2021-10-05] MEDS: levETIRAcetam 1,000 MG Tablet 2000 MG PO (21:42)
[2021-10-06] VITALS (26 sets, daily range): BP systolic 91–135; BP diastolic 56–94; PULSE 78–106; RESP 12–23; TEMP 35.6–36.9; O2SAT 92–99; BMI 35.9
--- NOTE | 2021-10-06 07:32 | ED.RN ---
PER [place] WITH [facility]. LONGEST PT HAS BEEN WAITING ON A BED SINCE 09/28/21. THEY ARE ON A [employer] WIDE DIVERSION PLAN. THIS PT WILL HAVE A LONG WAIT. CAN WE ADMIT HERE
--- NOTE | 2021-10-06 07:39 | ED.RN ---
Pt sleeping at this time.
--- NOTE | 2021-10-06 07:57 | PCM.HP.STD ---
[facility] - General General Date of Admission: 10/06/21 Date of Service: 10/06/21 Chief Complaint: Generalized weakness. HPI Narrative LOUIE PETTIT, is a 46 M with past medical history significant for lung CA diagnosed over 10 years ago currently on chemo with mets to the bone and the brain, history of previous steroid induced adrenal insufficiency who presents with increasing confusion and falls. History was taken from the patient's father who was by the bedside. Per patient's dad patient has been experiencing progressive symptoms over the past 4 days. In addition to patient being confused, patient's father did notice patient has been slow in responding and has experienced episodic confusion. Patient apparently also did complain of headaches. Patient father also thought patient had seizure-like activity. In view of the progressive nature of his symptoms patient was brought to the emergency department, CT head did show large region of low attenuation probable vasogenic edema in the right parietal occipital lobe again seen.? Small region of low attenuation in the left posterior frontal lobe again seen.? Small calcification in the left frontal lobe more anteriorly.? Corticalserpiginous calcification of the occipital lobes again seen.? 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 Right cerebellar encephalomalacia.? No acute intra-axial hemorrhage.. Call was placed to [facility] for patient to be transferred bed was however not available. Decision was made to admit patient to the [facility] inpatient service pending transfer. Patient's father was aware of the risk while patient is waiting to be transferred to [facility]. [facility] Medical History (Updated 10/06/21 @ 11:[address] Beau Portillo MD) CPAP (continuous positive airway pressure) dependence Lung cancer metastatic to brain Seizure Sleep apnea Home Medications Entrectinib 200 mg PO BID chemotherapy 08/23/15 [History Last Taken 10/05/21] calcium carbonate 600 mg-vitamin D3 20 mcg (800 unit) tablet 2 tab PO DAILY supplement 08/23/15 [History Last Taken 10/04/21] potassium chloride 20 mEq tablet,extended release(part/cryst) (Klor-Con M) 2 tab PO DAILY supplement 08/23/15 [History Last Taken 10/05/21] levetiracetam 500 mg tablet 1,500 mg PO BREAKFAST seizures 02/23/16 [History Last Taken 10/05/21] levetiracetam 1,000 mg tablet 2,000 mg PO QHS seizures 08/05/21 [History Last Taken 10/04/21] omeprazole 20 mg capsule,delayed release 20 mg PO DAILY GERD 08/05/21 [History Last Taken 10/05/21] Allergy/AdvReac Type Severity Reaction Status Date / Time diclofenac [Diclofenac] Allergy Unknown Verified 10/05/21 13:55 diphenhydramine HCl Allergy Unknown Verified 10/05/21 13:55 [From Benadryl] shellfish derived Allergy Unknown Verified 10/05/21 13:55 Family History (Updated 10/06/21 @ 11:[address] Beau Portillo MD) Uncle Cancer Surgical History History of brain surgery Social History Smoking Status: Never smoker ROS ROS Narrative GENERAL: Progressive generalized weakness HEENT: headache, RESPIRATORY: denies cough, sputum production, CARDIAC: denies chest pain, palpitations, orthopnea, PND GASTROINTESTINAL: denies abdominal pain, nausea, vomiting, melena, GENITOURINARY: denies dysuria, urgency, frequency, heamaturia EXTREMITY: denies swelling MUSCULOSKELETAL: denies current joint pain or tenderness NEUROLOGIC: denies focal numbness, weakness, tingling HEMATOLOGIC: denies easy bruising and/or hemorrhage INTEGUMENT: denies rashes PSYCHIATRIC: denies suicidal or homicidal ideation Vital Signs Vital Signs Vital Signs: 10/05/21 13:53 10/05/21 14:56 10/05/21 18:18 Temperature 97.6 F L Temperature Source Temporal Pulse Rate 91 77 Respiratory Rate 16 17 Blood Pressure 94/58 L 128/74 H Blood Pressure Mean 70 92 Pulse Ox 99 98 98 Oxygen Delivery Method Room Air Room Air Room Air 10/05/21 21:42 10/06/21 01:54 10/06/21 03:41 Temperature 98.4 F Temperature Source Oral Pulse Rate 96 95 95 Respiratory Rate 16 17 16 Blood Pressure 139/88 H 135/88 H 104/56 L Blood Pressure Mean 105 103 72 Pulse Ox 98 98 95 Oxygen Delivery Method Room Air Room Air Room Air 10/06/21 04:00 10/06/21 05:00 10/06/21 06:00 Temperature Temperature Source Pulse Rate 84 83 78 Respiratory Rate 14 14 12 Blood Pressure 110/68 Blood Pressure Mean 82 Pulse Ox 96 97 96 Oxygen Delivery Method Room Air Room Air Room Air 10/06/21 07:39 Temperature Temperature Source Pulse Rate 79 Respiratory Rate 18 Blood Pressure Blood Pressure Mean Pulse Ox 94 Oxygen Delivery Method Room Air Weight Weight: 113.398 kg Body Mass Index (BMI) 39.1 Physical Exam Narrative GENERAL: Patient is slow to respond HEENT: Atraumatic; EYES; Anicteric, Normal Conjunctiva NECK; supple, normal thyroid, RESPIRATORY: Diminished to auscultation CARDIOVASCULAR: Regular S1 S2, GI: soft, normoactive bowel sounds, : No Renal angle tenderness; EXTREMITIES: No edema, no clubbing, MUSCULOSKELETAL: no muscle wasting NEURO: Awake; no lateralizing signs. SKIN: No Rash PSYCH; Flat affect Results Lab / Micro Data Result Diagrams: 10/05/21 14:30 10/05/21 14:30 Labs: Laboratory Results - last 24 hr 10/05/21 14:30: WBC 4.4, RBC 3.47 L, Hgb 11.1 L, Hct 33.2 L, MCV 95.7 H, MCH 32.0, MCHC 33.4, RDW Std Deviation 42.2, RDW Coeff of Maryse 12.3, Plt Count 171, MPV 9.8, Immature Gran % (Auto) 0.500, Neut % (Auto) 65.8, Lymph % (Auto) 22.2, Chase % (Auto) 8.6, Eos % (Auto) 2.7, Baso % (Auto) 0.2, Absolute Neuts (auto) 2.9, Absolute Lymphs (auto) 0.98, Nucleated RBC % 0 10/05/21 14:30: PT 13.1, INR 1.0, APTT 40.9 H 10/05/21 14:30: Sodium 142, Potassium 4.3, Chloride 106, Carbon Dioxide 33.0 H, Anion Gap 3 L, BUN 16, Creatinine 1.10, Estim Creat Clear Calc 80.12, Est GFR (MDRD) Af Amer 93, Est GFR (MDRD) Non-Af 77, BUN/Creatinine Ratio 14.5, Glucose 104, Calcium 8.9 10/05/21 14:30: Cortisol 2.60 L 10/05/21 14:30: TSH 1.31 Radiology Impression Chest X-Ray 10/05/21 14:35 IMPRESSION: Elevation of the right hemidiaphragm with stable right apical pleural thickening. Surgical clips are seen in the right hilar region. Electronically Signed: Frederick Escobedo MD at 14:56 EDT , Brain CT 10/05/21 15:41 IMPRESSION: No significant interval change compared to recent prior. Large region of low attenuation in the right posterior parietal and occipital lobe. Smaller region of low attenuation in the left frontal lobe. Recommend MRI without and with contrast to assess for metastases or other etiologies of edema. Electronically Signed: Lauren Terrell MD at 16:40 EDT , Assessment & Plan Assessment/Plan (1) Lung cancer metastatic to brain: PLAN: Plan LOUIE PETTIT, is a 46 M with past medical history significant for lung CA diagnosed over 10 years ago currently on chemo with mets to the bone and the brain, history of previous steroid induced adrenal insufficiency who presents with increasing confusion and falls. CT obtained did not show large region of low attenuation probable vasogenic edema in the right parietal occipital lobe again seen.? Small region of low attenuation in the left posterior frontal lobe again seen.? Small calcification in the left frontal lobe more anteriorly.? Corticalserpiginous calcification of the occipital lobes again seen.? 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 Right cerebellar encephalomalacia.? No acute intra-axial hemorrhage.. Call was placed to [facility] for patient to be transferred bed was however not available. Decision was made to admit patient to the [facility] inpatient service pending transfer. Patient's father was aware of the risk while patient is waiting to be transferred to [facility]. 1. Acute encephalopathy ? Secondary to brain mets with vasogenic edema. Plan is for patient to be transferred to [facility] pending bed availability. In the meantime patient has been admitted to the intensive care unit where he is currently receiving high-dose steroids 2. Chronic steroid induced adrenal insufficiency ? Patient cortisol on admission was 2.6. Admitted to the intensive care unit and started on hydrocortisone 100 mg x 1 followed by 50 mg every 6 hours 3. Lung CA ? With mets to the brain and the bone. Currently on Entrectinib 4. Seizure disorder ? Patient is on Keppra did continue 5. GERD ? Patient is on PPI 6. Obesity class II with cushingoid features ? Secondary to chronic steroid use weight loss advised 7. DVT prophylaxis ? Enoxaparin 40 mg SC daily Advance planning; did discuss with the patient and family (patient's father) regarding advanced directives as well as CODE STATUS. Did explain the various scenarios involved ( FULL CODE, DNR CCA, DNR CCA with no intubation, and DNR CC and what each meant) family and patient elected to remain full code with CPR and intubation if warranted. Order was placed. Time spent on discussion 18 minutes. Charges/Coding Visit Charges Inpatient E&M: 58841 Init Hosp L3 Procedures Hospitalists Procedures: 08563 Advncd Care Plan 30 Min
--- NOTE | 2021-10-06 09:19 | CASEMGMT ---
Tertiary facilities in-network with patient's insurance: [facility], [facility], [facility], [place], , [facility], [facility], [facility], [facility].
[2021-10-06] MEDS: Enoxaparin 40 MG/0.4 ML Syringe SC (09:46)
[2021-10-06] MEDS: Hydrocortisone Sod Succinate 100 MG/2 ML Vial IV (09:46)
[2021-10-06] MEDS: Calcium Carb/Vitamin D 1 TABLET Tablet 2 TABLET PO (09:46)
[2021-10-06] MEDS: Potassium Chloride Oral Tablet 20 MEQ 40 MEQ PO (09:47)
[2021-10-06] MEDS: Pantoprazole Sodium 20 MG Tablet PO (09:47)
[2021-10-06] MEDS: levETIRAcetam 750 MG Tablet 1500 MG PO (09:47)
[2021-10-06 12:04] LABS: Absolute Lymphocyte Count 0.81 X10^3/uL (0.83-4.51); Absolute Neutrophil Count 3.3 X10^3/uL (2.0-7.7); Basophil# 0.02 X10^3/uL; Basophil% 0.5 % (0-1); Eosinophil# 0.08 X10^3/uL; Eosinophils% 1.8 % (0-5); Hematocrit 34.7 % (40-54); Hemoglobin 11.1 g/dL (13.0-16.5); Lymphocyte # 0.81 X10^3/ul (0.83-4.51); Lymphocyte % 18.3 % (19-41); Mean Corpuscular Hgb 32.3 pg (27.0-32.0); Mean Corpuscular Volume 100.9 fL (80-94); Mean Platelet Vol. 9.9 fl (6.2-12.0); Monocyte# 0.21 X10^3/uL; Monocyte% 4.8 % (0-10); NRBC Flagged by Analyzer 0 % (0-5); Neutrophil # 3.29 X10^3/uL (2.7-7.7); Neutrophil % 74.4 % (47-70); POSITIVE COUNT YES; Platelet Count 123 K/mm3 (150-450); RBC Distribution Width CV 12.3 % (11.6-14.6); Red Blood Count 3.44 M/mm3 (4.6-6.2); White Blood Count 4.4 K/mm3 (4.4-11.0)
[2021-10-06 12:27] LABS: AST(SGOT) 24 U/L (15-37); Alanine Aminotransfer ALT/SGPT 26 U/L (16-61); Albumin, Serum 3.4 g/dL (3.2-5.0); Alkaline Phosphatase 63 U/L (45-117); Anion Gap 1 (5-15); BUN 13 mg/dL (7-18); Calcium,Total 8.8 mg/dL (8.5-10.1); Chloride 111 mmol/L (98-107); Creatinine, Serum 0.87 mg/dL (0.70-1.30); EST Glomerular Filtration Rate 101 mL/min (>60); Est Glom Filt Rate - Afr Amer 123 mL/min (>60); Estimated Creatinine Clearance 108.35 ml/min; Globulin 3.4 g/dL (2.2-4.2); Glucose 110 mg/dL (74-106); Magnesium 2.1 mg/dL (1.6-2.6); Potassium 4.1 mmol/L (3.5-5.1); Protein, Total 6.8 g/dL (6.4-8.2); Sodium Level 140 mmol/L (136-145)
[2021-10-06 12:31] LABS: Differential Indicated SCAN CRITERIA MET
[2021-10-06 12:33] LABS: Macrocytosis 1+; Platelet Estimate ADEQUATE (ADEQ)
[2021-10-06] MEDS: Hydrocortisone Sod Succinate 100 MG/2 ML Vial 50 MG IV ×3 (13:35→23:02)
[2021-10-06] MEDS: levETIRAcetam 1,000 MG Tablet 2000 MG PO (22:40)
[2021-10-06] MEDS: 0.9% Saline Lock 10 ML Syringe IV (22:46)
[2021-10-07] VITALS (15 sets, daily range): BP systolic 96–140; BP diastolic 55–93; PULSE 71–108; RESP 12–20; TEMP 35.7–36.6; O2SAT 93–100
[2021-10-07 04:55] LABS: Absolute Lymphocyte Count 0.84 X10^3/uL (0.83-4.51); Absolute Neutrophil Count 5.5 X10^3/uL (2.0-7.7); Basophil# 0.01 X10^3/uL; Basophil% 0.1 % (0-1); Eosinophil# 0.01 X10^3/uL; Eosinophils% 0.1 % (0-5); Hemoglobin 10.7 g/dL (13.0-16.5); Lymphocyte # 0.84 X10^3/ul (0.83-4.51); Lymphocyte % 12.4 % (19-41); Mean Corp Hgb Conc 33.4 g/dL (32-36); Mean Corpuscular Hgb 31.9 pg (27.0-32.0); Mean Corpuscular Volume 95.5 fL (80-94); Monocyte# 0.36 X10^3/uL; Monocyte% 5.3 % (0-10); NRBC Flagged by Analyzer 0 % (0-5); Neutrophil % 81.7 % (47-70); Platelet Count 165 K/mm3 (150-450); RBC Distribution Width CV 12.4 % (11.6-14.6); RBC Distribution Width SD 43.1 fl (35.1-43.9); Red Blood Count 3.35 M/mm3 (4.6-6.2); White Blood Count 6.8 K/mm3 (4.4-11.0)
[2021-10-07 05:17] LABS: Anion Gap 1 (5-15); BUN 13 mg/dL (7-18); BUN/Creat Ratio 13.6 RATIO (10-20); Calcium,Total 8.7 mg/dL (8.5-10.1); Chloride 112 mmol/L (98-107); Creatinine, Serum 0.96 mg/dL (0.70-1.30); EST Glomerular Filtration Rate 90 mL/min (>60); Est Glom Filt Rate - Afr Amer 109 mL/min (>60); Estimated Creatinine Clearance 98.19 ml/min; Glucose 146 mg/dL (74-106); Magnesium 2.3 mg/dL (1.6-2.6); Potassium 4.1 mmol/L (3.5-5.1); Sodium Level 143 mmol/L (136-145)
[2021-10-07] MEDS: Hydrocortisone Sod Succinate 100 MG/2 ML Vial 50 MG IV ×4 (05:30→23:05)
--- NOTE | 2021-10-07 07:14 | PN.HOSP_ITS ---
Subjective Subjective Patient seen continues to experience intermittent confusion. No seizures following admission to the intensive care unit. Awaiting bed prior to transfer to [facility] Objective Data Objective Data Vital Signs: Vital Signs Temp Pulse Resp BP Pulse Ox O2 Del Method 97.5 F L 95 16 111/63 98 CPAP 10/07/21 04:00 10/07/21 06:00 10/07/21 06:00 10/07/21 06:00 10/07/21 06:00 10/07/21 06:00 Oxygen Delivery Method CPAP Weight: 111.5 kg Body Mass Index (BMI) 35.9 Intake & Output: Intake and Output for Last 24 Hours 10/05/21 10/06/21 10/07/21 23:59 23:59 23:59 Intake Total 480 / 480 Balance 480 / 480 Lab / Micro Data Result Diagrams: 10/07/21 04:40 10/07/21 04:40 Labs: Laboratory Results - last 24 hr 10/06/21 11:51: WBC 4.4, RBC 3.44 L, Hgb 11.1 L, Hct 34.7 L, MCV 100.9 H D, MCH 32.3 H, MCHC 32.0, RDW Std Deviation 45.0 H, RDW Coeff of Maryse 12.3, Plt Count 123 L, MPV 9.9, Immature Gran % (Auto) 0.200, Neut % (Auto) 74.4 H, Lymph % (Auto) 18.3 L, Alfalfa % (Auto) 4.8, Eos % (Auto) 1.8, Baso % (Auto) 0.5, Absolute Neuts (auto) 3.3, Absolute Lymphs (auto) 0.81 L, Nucleated RBC % 0, Platelet Estimate ADEQUATE, Macrocytosis 1+ 10/06/21 11:51: Sodium 140, Potassium 4.1, Chloride 111 H, Carbon Dioxide 28.0, Anion Gap 1 L, BUN 13, Creatinine 0.87, Estim Creat Clear Calc 108.35, Est GFR (MDRD) Af Amer 123, Est GFR (MDRD) Non-Af 101, BUN/Creatinine Ratio 15.0, Glucose 110 H, Calcium 8.8, Magnesium 2.1, Total Bilirubin 0.30, AST 24, ALT 26, Alkaline Phosphatase 63, Total Protein 6.8, Albumin 3.4, Globulin 3.4, Albumin/Globulin Ratio 1.0 10/07/21 04:40: WBC 6.8, RBC 3.35 L, Hgb 10.7 L, Hct 32.0 L, MCV 95.5 H D, MCH 31.9, MCHC 33.4, RDW Std Deviation 43.1, RDW Coeff of Maryse 12.4, Plt Count 165, MPV 10.0, Immature Gran % (Auto) 0.400, Neut % (Auto) 81.7 H, Lymph % (Auto) 12.4 L, Alfalfa % (Auto) 5.3, Eos % (Auto) 0.1, Baso % (Auto) 0.1, Absolute Neuts (auto) 5.5, Absolute Lymphs (auto) 0.84, Nucleated RBC % 0 10/07/21 04:40: Sodium 143, Potassium 4.1, Chloride 112 H, Carbon Dioxide 30.0, Anion Gap 1 L, BUN 13, Creatinine 0.96, Estim Creat Clear Calc 98.19, Est GFR (MDRD) Af Amer 109, Est GFR (MDRD) Non-Af 90, BUN/Creatinine Ratio 13.6, Glucose 146 H, Calcium 8.7, Magnesium 2.3 Physical Exam Narrative GENERAL: Patient is slow to respond HEENT: Atraumatic; EYES; Anicteric, Normal Conjunctiva NECK; supple, normal thyroid, RESPIRATORY: Diminished to auscultation CARDIOVASCULAR: Regular S1 S2, GI: soft, normoactive bowel sounds, : No Renal angle tenderness; EXTREMITIES: No edema, no clubbing, MUSCULOSKELETAL: no muscle wasting NEURO: Awake; no lateralizing signs. SKIN: No Rash PSYCH; Flat affect Assessment & Plan Assessment/Plan (1) Lung cancer metastatic to brain: PLAN: Plan LOUIE PETTIT, is a 46 M with past medical history significant for lung CA diagnosed over 10 years ago currently on chemo with mets to the bone and the brain, history of previous steroid induced adrenal insufficiency who presents with increasing confusion and falls. CT obtained did not show large region of low attenuation probable vasogenic edema in the right parietal occipital lobe again seen.? Small region of low attenuation in the left posterior frontal lobe again seen.? Small calcification in the left frontal lobe more anteriorly.? Corticalserpiginous calcification of the occipital lobes again seen.? 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 Right cerebellar encephalomalacia.? No acute intra- axial hemorrhage.. Call was placed to [facility] for patient to be transferred bed was however not available. Decision was made to admit patient to the [facility] inpatient service pending transfer. Patient's father was aware of the risk while patient is waiting to be transferred to [facility]. 1. Acute encephalopathy ? Secondary to brain mets with vasogenic edema. Plan is for patient to be transferred to [facility] pending bed availability. In the meantime patient has been admitted to the intensive care unit where he is currently receiving high-dose steroids 2. Chronic steroid induced adrenal insufficiency ? Patient cortisol on admission was 2.6. Admitted to the intensive care unit and started on hydrocortisone 100 mg x 1 followed by 50 mg every 6 hours 3. Lung CA ? With mets to the brain and the bone. Currently on Entrectinib 4. Seizure disorder ? Patient is on Keppra did continue 5. GERD ? Patient is on PPI 6. Obesity class II with cushingoid features ? Secondary to chronic steroid use weight loss advised 7. DVT prophylaxis ? Enoxaparin 40 mg SC daily Charges/Coding Visit Charges Inpatient E&M: 02579 Subs Hosp L2
[2021-10-07] MEDS: Potassium Chloride Oral Tablet 20 MEQ 40 MEQ PO (10:04)
[2021-10-07] MEDS: Pantoprazole Sodium 20 MG Tablet PO (10:05)
[2021-10-07] MEDS: Enoxaparin 40 MG/0.4 ML Syringe SC (10:05)
[2021-10-07] MEDS: levETIRAcetam 750 MG Tablet 1500 MG PO (10:05)
[2021-10-07] MEDS: Calcium Carb/Vitamin D 1 TABLET Tablet 2 TABLET PO (10:05)
--- NOTE | 2021-10-07 11:03 | NURSING ---
called [facility] for a bed update and was informed the patient is waiting to be accepted by a service
--- NOTE | 2021-10-07 13:57 | CHAPLAIN ---
Type of Pastoral Visit _x__ Initial Visit ___ Follow-up Visit ___ On-call Visit ___ General Patient Visit ___ Spiritual Assessment ___ Family Conference ___ Bereavement ___ Rapid Response ___ Code Blue ___ Other (describe below) Pastoral Care Referral From _x__ Patient _x__ Family ___ Nurse ___ Physician ___ Relay Checker ___ Material Mover ___ Other (describe below) Sacrament/Intervention _x__ Active listening ___ Anointing ___ Latter Day ___ Bereavement ___ Communion _x__ Eneida exploration ___ _x__ Life review _x_ Prayer ___ Reconciliation ___ Sacrament of Sick __x_ Supportive presence ___ Wedding ___ Other (describe below) Pastoral Comments saw this patient while he was in ICU; father of pt was with him and did some of the talking to explain situation and answered a few of the questions; pt was alert but did defer some questions to his father; pt indicated that his father has great understanding of the situation and can be his advocate; pt is waiting on a bed to be then transferred; pt has had a decade of illness and states that he just keeps a positive attitude and a perspective of perseverance and eneida to guide him; pt and father welcome spiritual care support and prayer
--- NOTE | 2021-10-07 15:41 | NURSING ---
[facility] called, update given on patient status
[2021-10-07] MEDS: 0.9% Saline Lock 10 ML Syringe IV ×2 (17:02→23:10)
[2021-10-07] MEDS: levETIRAcetam 1,000 MG Tablet 2000 MG PO (21:38)
[2021-10-08 03:15] VITALS: BP 133/73; PULSE 86; RESP 18; TEMP 36.8; O2SAT 95
[2021-10-08] MEDS: Hydrocortisone Sod Succinate 100 MG/2 ML Vial 50 MG IV ×3 (05:09→17:08)
[2021-10-08] MEDS: 0.9% Saline Lock 10 ML Syringe IV ×3 (05:15→17:08)
[2021-10-08 06:29] LABS: Absolute Lymphocyte Count 1.64 X10^3/uL (0.83-4.51); Absolute Neutrophil Count 6.5 X10^3/uL (2.0-7.7); Basophil# 0.02 X10^3/uL; Basophil% 0.2 % (0-1); Eosinophil# 0.03 X10^3/uL; Eosinophils% 0.3 % (0-5); Lymphocyte # 1.64 X10^3/ul (0.83-4.51); Lymphocyte % 18.4 % (19-41); Mean Corp Hgb Conc 35.5 g/dL (32-36); Mean Corpuscular Hgb 32.7 pg (27.0-32.0); Mean Corpuscular Volume 92.3 fL (80-94); Mean Platelet Vol. 9.8 fl (6.2-12.0); Monocyte# 0.66 X10^3/uL; Monocyte% 7.4 % (0-10); NRBC Flagged by Analyzer 0 % (0-5); Platelet Count 177 K/mm3 (150-450); RBC Distribution Width CV 12.6 % (11.6-14.6); RBC Distribution Width SD 42.5 fl (35.1-43.9); Red Blood Count 3.36 M/mm3 (4.6-6.2); White Blood Count 8.9 K/mm3 (4.4-11.0)
[2021-10-08 06:55] LABS: Anion Gap 2 (5-15); BUN 17 mg/dL (7-18); BUN/Creat Ratio 21.7 RATIO (10-20); Chloride 113 mmol/L (98-107); Creatinine, Serum 0.78 mg/dL (0.70-1.30); EST Glomerular Filtration Rate 114 mL/min (>60); Est Glom Filt Rate - Afr Amer 138 mL/min (>60); Estimated Creatinine Clearance 120.85 ml/min; Glucose 119 mg/dL (74-106); Potassium 4.2 mmol/L (3.5-5.1); Sodium Level 145 mmol/L (136-145)
[2021-10-08 08:01] VITALS: BP 134/81; PULSE 67; RESP 16; TEMP 36.6; O2SAT 97
[2021-10-08] MEDS: Pantoprazole Sodium 20 MG Tablet PO (08:11)
[2021-10-08] MEDS: Potassium Chloride Oral Tablet 20 MEQ 40 MEQ PO (08:11)
[2021-10-08] MEDS: Enoxaparin 40 MG/0.4 ML Syringe SC (08:12)
[2021-10-08] MEDS: Calcium Carb/Vitamin D 1 TABLET Tablet 2 TABLET PO (08:12)
[2021-10-08] MEDS: levETIRAcetam 750 MG Tablet 1500 MG PO (08:12)
--- NOTE | 2021-10-08 08:12 | PN.HOSP_ITS ---
Subjective Subjective Patient seen, per The patient's , father as well as nursing staff patient was very delirious and agitated during the night with worsening hallucinations. Plan is to decrease the dose of patient hydrocortisone. Transfer to [facility] pending Objective Data Objective Data Vital Signs: Vital Signs Temp Pulse Resp BP Pulse Ox O2 Del Method 97.8 F 67 16 134/81 H 97 Room Air 10/08/21 08:01 10/08/21 08:01 10/08/21 08:01 10/08/21 08:01 10/08/21 08:01 10/08/21 08:01 Oxygen Delivery Method Room Air Weight: 111.5 kg Body Mass Index (BMI) 35.9 Intake & Output: Intake and Output for Last 24 Hours 10/06/21 10/07/21 10/08/21 23:59 23:59 23:59 Intake Total 480 / 480 1260 / 1260 Balance 480 / 480 1260 / 1260 Lab / Micro Data Result Diagrams: 10/08/21 06:11 10/08/21 06:11 Labs: Laboratory Results - last 24 hr 10/08/21 06:11: WBC 8.9, RBC 3.36 L, Hgb 11.0 L, Hct 31.0 L, MCV 92.3, MCH 32.7 H, MCHC 35.5 D, RDW Std Deviation 42.5, RDW Coeff of Maryse 12.6, Plt Count 177, MPV 9.8, Immature Gran % (Auto) 0.700, Neut % (Auto) 73.0 H, Lymph % (Auto) 18.4 L, Gibson % (Auto) 7.4, Eos % (Auto) 0.3, Baso % (Auto) 0.2, Absolute Neuts (auto) 6.5, Absolute Lymphs (auto) 1.64, Nucleated RBC % 0 10/08/21 06:11: Sodium 145, Potassium 4.2, Chloride 113 H, Carbon Dioxide 30.0, Anion Gap 2 L, BUN 17, Creatinine 0.78, Estim Creat Clear Calc 120.85, Est GFR (MDRD) Af Amer 138, Est GFR (MDRD) Non-Af 114, BUN/Creatinine Ratio 21.7 H, Glucose 119 H, Calcium 9.0 Physical Exam Narrative GENERAL: Patient is slow to respond HEENT: Atraumatic; EYES; Anicteric, Normal Conjunctiva NECK; supple, normal thyroid, RESPIRATORY: Diminished to auscultation CARDIOVASCULAR: Regular S1 S2, GI: soft, normoactive bowel sounds, : No Renal angle tenderness; EXTREMITIES: No edema, no clubbing, MUSCULOSKELETAL: no muscle wasting NEURO: Awake; no lateralizing signs. SKIN: No Rash PSYCH; Flat affect Assessment & Plan Assessment/Plan (1) Lung cancer metastatic to brain: PLAN: Plan LOUIE PETTIT, is a 46 M with past medical history significant for lung CA diagnosed over 10 years ago currently on chemo with mets to the bone and the brain, history of previous steroid induced adrenal insufficiency who presents with increasing confusion and falls. CT obtained did not show large region of low attenuation probable vasogenic edema in the right parietal occipital lobe again seen.? Small region of low attenuation in the left posterior frontal lobe again seen.? Small calcification in the left frontal lobe more anteriorly.? Corticalserpiginous calcification of the occipital lobes again seen.? 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 Right cerebellar encephalomalacia.? No acute intra- axial hemorrhage.. Call was placed to [facility] for patient to be transferred bed was however not available. Decision was made to admit patient to the [facility] inpatient service pending transfer. Patient's father was aware of the risk while patient is waiting to be transferred to [facility]. 1. Acute encephalopathy ? Secondary to brain mets with vasogenic edema as well as metabolic encephalopathy from adrenal insufficiency. Plan is for patient to be transferred to [facility] pending bed availability. In the meantime patient has been admitted to the intensive care unit where he is currently receiving high-dose steroids -10/08/2021atient seen, per The patient's , father as well as nursing staff patient was very delirious and agitated during the night with worsening hallucinations. Plan is to decrease the dose of patient hydrocortisone. Transfer to [facility] pending 2. Chronic steroid induced adrenal insufficiency ? Patient cortisol on admission was 2.6. Admitted to the intensive care unit and started on hydrocortisone 100 mg x 1 followed by 50 mg every 6 hours 3. Lung CA ? With mets to the brain and the bone. Currently on Entrectinib 4. Seizure disorder ? Patient is on Keppra did continue 5. GERD ? Patient is on PPI 6. Obesity class II with cushingoid features ? Secondary to chronic steroid use weight loss advised 7. DVT prophylaxis ? Enoxaparin 40 mg SC daily Charges/Coding Visit Charges Inpatient E&M: 68852 Subs Hosp L2
[2021-10-08 14:00] VITALS: BP 118/76; PULSE 92; RESP 16; TEMP 36.7; O2SAT 94
--- NOTE | 2021-10-08 15:57 | NURSING ---
[facility] called at 1400 to request update on patient. Provided updated labs, vitals, and informed of worsening hallucinations. No bed available at this time.
[2021-10-08 20:00] VITALS: BP 126/76; PULSE 81; RESP 17; TEMP 36.7; O2SAT 98
[2021-10-08] MEDS: QUEtiapine 25 MG Tablet PO (20:39)
--- NOTE | 2021-10-08 23:20 | NURSING ---
Addendum entered by Cecelia Jiang 10/08/21 23:45: Family was educated about the medications and what they are for Original Note: Per family request to skip 2200 Keppra dose and 00:00 solu-cortsalome d/t pt. having increased hallucinations and is now sleeping
--- NOTE | 2021-10-09 02:23 | NURSING ---
pt. sleeping in bed, father at bedside in chair requesting the nurse to not do vitals and leave patient until he wakes
[2021-10-09 06:00] VITALS: BP 131/80; PULSE 64; RESP 17; TEMP 36.6; O2SAT 96
[2021-10-09] MEDS: Hydrocortisone Sod Succinate 100 MG/2 ML Vial 50 MG IV ×3 (06:23→21:21)
--- NOTE | 2021-10-09 08:01 | PCM.PN.HOSP ---
Subjective Subjective Bed still not available for transfer to [facility] contacted patient oncologist at the [facility] to facilitate patient's transfer the day prior. Patient did receive Seroquel at night for sleep Objective Data Objective Data Vital Signs: Vital Signs Temp Pulse Resp BP Pulse Ox O2 Del Method 97.8 F 64 17 131/80 H 96 Room Air 10/09/21 06:00 10/09/21 06:00 10/09/21 06:00 10/09/21 06:00 10/09/21 06:00 10/09/21 06:00 Oxygen Delivery Method Room Air Weight: 110.8 kg Body Mass Index (BMI) 35.9 Intake & Output: Intake and Output for Last 24 Hours 10/07/21 10/08/21 10/09/21 23:59 23:59 23:59 Intake Total 1260 / 1260 Balance 1260 / 1260 Lab / Micro Data Result Diagrams: 10/08/21 06:11 10/08/21 06:11 Physical Exam Narrative GENERAL: Resting comfortably in no apparent distress HEENT: Atraumatic; EYES; Anicteric, Normal Conjunctiva NECK; supple, normal thyroid, RESPIRATORY: Diminished to auscultation CARDIOVASCULAR: Regular S1 S2, GI: soft, normoactive bowel sounds, : No Renal angle tenderness; EXTREMITIES: No edema, no clubbing, MUSCULOSKELETAL: no muscle wasting NEURO: Awake; no lateralizing signs. SKIN: No Rash Assessment & Plan Assessment/Plan (1) Lung cancer metastatic to brain: PLAN: Plan LOUIE PETTIT, is a 46 M with past medical history significant for lung CA diagnosed over 10 years ago currently on chemo with mets to the bone and the brain, history of previous steroid induced adrenal insufficiency who presents with increasing confusion and falls. CT obtained did not show large region of low attenuation probable vasogenic edema in the right parietal occipital lobe again seen.? Small region of low attenuation in the left posterior frontal lobe again seen.? Small calcification in the left frontal lobe more anteriorly.? Corticalserpiginous calcification of the occipital lobes again seen.? 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 Right cerebellar encephalomalacia.? No acute intra-axial hemorrhage.. Call was placed to [facility] for patient to be transferred bed was however not available. Decision was made to admit patient to the [facility] inpatient service pending transfer. Patient's father was aware of the risk while patient is waiting to be transferred to [facility]. 1. Acute encephalopathy ? Secondary to brain mets with vasogenic edema as well as metabolic encephalopathy from adrenal insufficiency. Plan is for patient to be transferred to [facility] pending bed availability. In the meantime patient has been admitted to the intensive care unit where he is currently receiving high-dose steroids -10/08/2021atient seen, per The patient's , father as well as nursing staff patient was very delirious and agitated during the night with worsening hallucinations. Plan is to decrease the dose of patient hydrocortisone. Transfer to [facility] pending ? 10/09/2021; patient did receive Seroquel last night which according to family held with his sleep as well as the hallucinations 2. Chronic steroid induced adrenal insufficiency ? Patient cortisol on admission was 2.6. Admitted to the intensive care unit and started on hydrocortisone 100 mg x 1 followed by 50 mg every 6 hours ? 10/09/2021 hydrocortisone dose adjusted to 50 mg Q8 3. Lung CA ? With mets to the brain and the bone. Currently on Entrectinib 4. Seizure disorder ? Patient is on Keppra did continue 5. GERD ? Patient is on PPI 6. Obesity class II with cushingoid features ? Secondary to chronic steroid use weight loss advised 7. DVT prophylaxis ? Enoxaparin 40 mg SC daily 8. Hallucinations ? May be related to his therapy from steroid with differential diagnosis being his brain lesions. Patient symptoms improved with Seroquel ordered as needed at at bedtime Charges/Coding Visit Charges Inpatient E&M: 41959 Subs Hosp L2
[2021-10-09] MEDS: Potassium Chloride Oral Tablet 20 MEQ 40 MEQ PO (11:04)
[2021-10-09] MEDS: Enoxaparin 40 MG/0.4 ML Syringe SC (11:04)
[2021-10-09] MEDS: Pantoprazole Sodium 20 MG Tablet PO (11:05)
[2021-10-09] MEDS: Calcium Carb/Vitamin D 1 TABLET Tablet 2 TABLET PO (11:06)
[2021-10-09] MEDS: levETIRAcetam 750 MG Tablet 1500 MG PO (11:06)
[2021-10-09] MEDS: 0.9% Saline Lock 10 ML Syringe IV ×2 (11:07→21:21)
[2021-10-09 15:05] VITALS: BP 122/80; PULSE 76; RESP 16; TEMP 36.4; O2SAT 98
--- NOTE | 2021-10-09 16:29 | NURSING ---
Call made to [facility], hospital full still no beds available and no ETA for bed at this time.
--- NOTE | 2021-10-09 17:37 | NURSING ---
[facility] transfer center called, anya higgins/ Nadine. Clinical update given, VS. No beds available.
[2021-10-09 21:19] VITALS: BP 127/68; PULSE 71; RESP 18; TEMP 36.8; O2SAT 97
[2021-10-09] MEDS: levETIRAcetam 1,000 MG Tablet 2000 MG PO (21:21)
[2021-10-09] MEDS: QUEtiapine 25 MG Tablet PO (21:21)
[2021-10-10 04:10] VITALS: BP 124/76; PULSE 75; RESP 20; TEMP 35.7; O2SAT 100
[2021-10-10] MEDS: Hydrocortisone Sod Succinate 100 MG/2 ML Vial 50 MG IV ×3 (05:22→20:16)
[2021-10-10] MEDS: 0.9% Saline Lock 10 ML Syringe IV ×3 (05:22→20:15)
[2021-10-10 10:18] VITALS: BP 120/87; PULSE 77; RESP 16; TEMP 36.6; O2SAT 100
[2021-10-10] MEDS: Potassium Chloride Oral Tablet 20 MEQ 40 MEQ PO (10:40)
[2021-10-10] MEDS: levETIRAcetam 750 MG Tablet 1500 MG PO (10:40)
[2021-10-10] MEDS: Pantoprazole Sodium 20 MG Tablet PO (10:40)
[2021-10-10] MEDS: Enoxaparin 40 MG/0.4 ML Syringe SC (10:40)
[2021-10-10] MEDS: Calcium Carb/Vitamin D 1 TABLET Tablet 2 TABLET PO (10:40)
[2021-10-10 16:15] VITALS: BP 136/83; PULSE 76; RESP 16; TEMP 36.5; O2SAT 100
--- NOTE | 2021-10-10 18:47 | DS.PCM_ITS ---
Providers Date of Admission: 10/06/21 Date of Discharge: 10/10/21 Primary Care Physician: Dr. Med Llanes MD Reason For Visit: ENCEPHALOPTHY / BRAIN METS W VASOGENIC EDEMA Diagnosis Discharge Diagnosis (1) Lung cancer metastatic to brain: Status: Acute Code(s): C34.90 - Malignant neoplasm of unspecified part of unspecified bronchus or lung; C79.31 - Secondary malignant neoplasm of brain Plan 1. Acute encephalopathy secondary to metastatic cancer to the brain from lung cancer-with vasogenic edema #2 metastatic lung cancer to the brain #3 acute metabolic encephalopathy secondary to chronic adrenal insufficiency #4 seizure disorder #5 adrenal insufficiency Medications at Discharge Home Medications Entrectinib 400 mg PO DAILY chemotherapy 08/23/15 calcium carbonate 600 mg-vitamin D3 20 mcg (800 unit) tablet 2 tab PO DAILY supp lement 08/23/15 potassium chloride 20 mEq tablet,extended release(part/cryst) (Klor-Con M) 2 tab PO DAILY supplement 08/23/15 levetiracetam 500 mg tablet 1,500 mg PO BREAKFAST seizures 02/23/16 levetiracetam 1,000 mg tablet 2,000 mg PO QHS seizures 08/05/21 omeprazole 20 mg capsule,delayed release 20 mg PO DAILY GERD 08/05/21 Hospital Course Operations None Procedures None Summary of Care Provided Minutes Spent on Discharge: 31 Hospital Course: This 46-year-old white male with a history of lung cancer with metastatic spread to the brain who was on chemotherapy presented to the emergency room with confusion, patient complained of headache and was slow to respond to questions. CT scan of the brain was performed in the ER which did not show any significant interval change from previous CT that showed some right-sided vasogenic edema, it was felt that the patient's slurred speech and confusion could also be secondary to a seizure as the patient does have a history of seizure disorder and was on Keppra. Blood work was obtained including a CBC and BMP which were unremarkable. Serum cortisol level was obtained and it was low at 2.6. The hospitalist service was contacted and recommended the patient be transferred to [facility] for further care as he had received his medical care there in the past. There was not a bed available at [facility] and the patient was admitted to PCU and he was given IV hydrocortisone. Patient spent several days in the hospital, he remained confused at times but there was no overt seizure activity. On 10/10/2021, we received word that [facility] had a bed for the patient. On 10/10/2021, patient was seen and examined: On examination he appeared alert and responded appropriately to questions, he appeared in no distress. Vital signs as documented. Skin warm and dry and without overt rashes. Neck without JVD, neck was supple, trachea midline, thyroid was normal. Lungs clear bilaterally, normal air movement was noted. Heart exam notable for regular rhythm, normal sounds and absence of murmurs, rubs or gallops. Abdomen unremarkable and without evidence of organomegaly, masses, or abdominal aortic enlargement. Bowel sounds are present, abdomen is not distended. Extremities nonedematous, no cyanosis was noted, no clubbing was noted. Neuro: Cranial nerves II through XII are grossly intact, no focal motor deficits were noted, sensation to light touch and pinprick intact, motor exam 5/5 throughout. Psych: Patient is alert and oriented x3, he does not appear anxious or depressed, he does not appear agitated. Patient was transferred to [facility] for further care on 10/10/2021 in stable condition Weight / BMI Weight Weight: 110.8 kg Body Mass Index (BMI) 35.9 ABG / Lab / Microbiology Data Result Diagrams: 10/08/21 06:11 10/08/21 06:11 Meaningful Use Info Meaningful Use Diagnoses (Choose all that apply): None applicable Discharge Plan Admission Admit Date/Time: 10/06/21 07:50 Attending Provider: Omkar Brooks Primary Care Provider: Med Llanes Consulting Providers: Beau Portillo Discharge Orders/Prescriptions Prescriptions: No Action potassium chloride [Klor-Con M20] 20 MEQ tablet 2 tab PO DAILY calcium carbonate-vitamin D3 1 EACH tablet 2 tab PO DAILY Entrectinib 400 mg PO DAILY levetiracetam 500 MG tablet 1,500 mg PO BREAKFAST omeprazole 20 mg Capsule,Delayed Release(Dr/Ec) 20 mg PO DAILY levetiracetam 1,000 mg Tablet 2,000 mg PO QHS Referrals / Follow Up: Med Llanes MD [Primary Care Provider] - Disposition Disposition (needs filled in before D/C Order can be placed): Acute Care Hospital Charges/Coding Visit Charges Inpatient E&M: 85469 Disch Hosp
--- NOTE | 2021-10-10 19:59 | NURSING ---
Report given to Lupe rn at [facility] at this time.
[2021-10-10 20:10] VITALS: BP 130/80; PULSE 75; RESP 18; TEMP 36.9; O2SAT 98
[2021-10-10] MEDS: levETIRAcetam 1,000 MG Tablet 2000 MG PO (20:15)
[2021-10-10] MEDS: QUEtiapine 25 MG Tablet PO (20:15)
== END 2021-10-10 22:55 | disposition short-term general hospital (02) | DRG 80 ==
LOC: ED 20:25 → ICU 10-06 08:38 → PCU 10-07 13:32
PROVIDERS: Admitting Provider Internal Medicine; Emergency Provider Student in an Organized Health Care Education/Training Program; PCP Family Medicine; Visit Provider Internal Medicine
DX: G93.6 Cerebral edema (principal); G93.41 Metabolic encephalopathy; C79.51 Secondary malignant neoplasm of bone; E27.3 Drug-induced adrenocortical insufficiency; C34.90 Malignant neoplasm of unspecified part of unspecified bronchus or lung; C79.31 Secondary malignant neoplasm of brain; G40.909 Epilepsy, unspecified, not intractable, without status epilepticus; G47.30 Sleep apnea, unspecified; K21.9 Gastro-esophageal reflux disease without esophagitis; Z79.899 Other long term (current) drug therapy; E66.1 Drug-induced obesity; Z79.52 Long term (current) use of systemic steroids; T38.0X5A Adverse effect of glucocorticoids and synthetic analogues, initial encounter; Z68.35 Body mass index [BMI] 35.0-35.9, adult
CPT/HCPCS: 36415; 70450; 71045; 80048; 80053; 82533; 83735; 84443; 85025; 85610; 85730; 93005; 99285; A4216

== ENCOUNTER 2022-10-02 08:15 | Outpatient (CLI) | payer BC, SELFPAY ==
[2022-10-02 09:32] LABS: AST(SGOT) 22 U/L (15-37); Alanine Aminotransfer ALT/SGPT 40 U/L (16-61); Albumin, Serum 3.6 g/dL (3.2-5.0); Alkaline Phosphatase 49 U/L (45-117); Bilirubin, Direct < 0.05 mg/dL (0.00-0.30); Globulin 3.8 g/dL (2.2-4.2); Protein, Total 7.4 g/dL (6.4-8.2)
== END 2022-10-02 23:59 | disposition home or self-care (01) ==
LOC: LAB 08:22
PROVIDERS: PCP Family Medicine
DX: C34.91 Malignant neoplasm of unspecified part of right bronchus or lung (principal)
CPT/HCPCS: 36415; 80076

== ENCOUNTER → 2022-12-22 | Outpatient (CLI) | payer BC, SELFPAY ==
[2022-12-22 09:56] LABS: T3 Total - Triiodothyronine 1.13 ng/mL (0.6-1.81)
[2022-12-22 10:03] LABS: T4 Free Direct 0.84 ng/dL (0.76-1.46); Thyroid Stim Hormone (TSH) 1.25 uIU/mL (0.358-3.74)
== END | disposition home or self-care (01) ==
PROVIDERS: PCP Family Medicine
DX: E03.9 Hypothyroidism, unspecified (principal)
CPT/HCPCS: 36415; 84439; 84443; 84480

== ENCOUNTER → 2023-02-10 | Outpatient (CLI) | payer BC, SELFPAY ==
--- NOTE | 2023-02-10 08:44 | VDLE_ITS ---
Reason For Study: Bilateral leg swelling RIGHT LEFT GSV is normal. GSV is normal. CFV is compressible, spontaneous, phasic, CFV is compressible, spontaneous, phasic, competent and demonstrates normal competent, and demonstrates normal augmentation. augmentation. FV is compressible, spontaneous, phasic, FV is compressible, spontaneous, phasic, competent and demonstrates normal competent and demonstrates normal augmentation. augmentation. POP V is compressible, spontaneous, phasic, POP V is compressible, spontaneous, phasic, competent and demonstrates normal competent and demonstrates normal augmentation. augmentation. T/P Trunk is compressible. T/P Trunk is compressible. PTV is compressible. PTV is compressible. RT PerV is compressible. LT PerV is compressible. Procedure This is a venous duplex using B-mode, color flow and spectral Doppler. Exam performed in department. A preliminary report was called and/or faxed to Myke PADILLA. VL/Venous Duplex US - Maurice Extrem Interpretation Summary No evidence for acute deep venous thrombosis bilateral lower extremities with p atent and compressible bilateral great saphenous veins. Ordering Physician: JARROD MOSER Referring Physician: Med Llanes MD Performed By: Eli Salas RVT
== END | disposition home or self-care (01) ==
PROVIDERS: PCP Family Medicine
DX: M79.89 Other specified soft tissue disorders (principal)
CPT/HCPCS: 93970

== ENCOUNTER 2023-08-15 07:02 | Emergency (ER) | payer BC, SELFPAY ==
[2023-08-15 07:05] VITALS: BP 131/83; PULSE 87; RESP 16; TEMP 36.5; O2SAT 98; BMI 36.8
--- NOTE | 2023-08-15 07:45 | CT_ITS ---
We are attempting to reach an attending provider to discuss findings. An addendum with communication details will be sent when the communication is complete. EXAM: CT HEAD WITHOUT INTRAVENOUS CONTRAST CLINICAL INDICATION: trauma w/ hx of brain mets TECHNIQUE: Multiple axial images were obtained of the head without intravenous contrast. This CT exam was performed using one or more of the following dose reduction techniques: automated exposure control, adjustment of the mA and/or kV according to patient size, and/or use of iterative reconstruction technique. COMPARISON: CT Head dated 10/05/2021 FINDINGS: BRAIN AND EXTRA-AXIAL SPACES: 5 mm petechial hemorrhage noted within the left cerebellum associated with a mild amount of adjacent vasogenic edema. There is also a small focus of acute hemorrhage along the superior aspect of the tentorium on the right possibly within the subdural space. No significant mass effect. No change in the encephalomalacic changes involving both cerebral and cerebellar hemispheres. Old lacunar infarct of the posterior limb of the right internal capsule again seen. Peripheral curvilinear calcifications within the occipital lobes again seen related to cortical laminar necrosis. BONES/JOINTS: Stable right occipital and temporal parietal craniectomy defects. Interval craniectomy involving the right posterior parietal region. SINUSES: No acute sinusitis. MASTOID AIR CELLS: Normal. Clear. CT/Brain/Head without Contrast IMPRESSION: 1. 5 mm acute petechial hemorrhage of the left cerebellum. 2. Minimal extra-axial hemorrhage along the right side of the tentorium. 3. Stable multifocal encephalomalacic changes of the cerebral and cerebellar hemispheres. Electronically Signed: Michael Perez MD at 8:38 EDT ,
--- NOTE | 2023-08-15 07:45 | CT_ITS ---
EXAM: CT CERVICAL SPINE WITHOUT INTRAVENOUS CONTRAST CLINICAL INDICATION: fell down steps TECHNIQUE: Helically acquired images were obtained of the cervical spine without intravenous contrast. 2D reformatted images were reviewed. This CT exam was performed using one or more of the following dose reduction techniques: automated exposure control, adjustment of the mA and/or kV according to patient size, and/or use of iterative reconstruction technique. COMPARISON: CT Cervical Spine dated 10/01/2021 FINDINGS: ARTIFACTS: Motion artifacts degrade the overall quality of the exam. VERTEBRAE: No fracture. No traumatic subluxation. No discrete lytic or blastic abnormality. Normal alignment. Normal craniocervical junction and cervicothoracic junction. DISCS/SPINAL CANAL/NEURAL FORAMINA: Normal. Disc heights are preserved. No significant spinal or neural foraminal stenosis. SOFT TISSUES: Normal. No prevertebral soft tissue swelling. LYMPH NODES: Normal. No cervical adenopathy. LUNG APICES: Left apical pulmonary nodules suggestive of metastatic disease. Consolidation/atelectasis of the right lung. OTHER FINDINGS: Postoperative changes of the posterior fossa. CT/Spine Cervical without Contras IMPRESSION: Intact cervical spine. As above. Electronically Signed: Michael Perez MD at 8:56 EDT ,
--- NOTE | 2023-08-15 07:46 | ED.VIS.FALL ---
HPI HPI - Fall History of Present Illness Chief Complaint: Fall Informant: patient and family Occured/Mechanism Occurred: Today Usually ambulates: Without assistance Pain/Injury Pain Location: head and upper extremity Quality of Pain: Dull Current Severity: Mild Maximum Severity: Mild Associated Symptoms Associated Symptoms: Negative for Parasthesias, Weakness, Loss of function, Inability to ambulate, Loss of consciousness or Amnesia Narrative Narrative: 48-year-old male history of lung CA that metastasized to his brain. He is being cared for that at [facility]. He is last surgery was about a year ago gamma knife due to brain mets. He is currently on dexamethasone for brain swelling. Today the family believes he is walking down the steps lost his balance fell and rolled down multiple steps. They do not believe he had any LOC. He is not on any blood thinners. Complaining of head injury. And some right shoulder discomfort. Prior similar symptoms: Yes Recent Illness/Hospitalization: No PFSH PFSH Medical History CPAP (continuous positive airway pressure) dependence Sleep apnea Seizure Lung cancer metastatic to brain Home Medications ?Medication ?Instructions ?Recorded ?Last Taken ?Type Entrectinib 400 mg PO DAILY chemotherapy 08/23/15 10/05/21 History calcium carbonate 600 mg-vitamin 2 tab PO DAILY supplement 08/23/15 10/04/21 History D3 20 mcg (800 unit) tablet potassium chloride 20 mEq 30 meq PO DAILY supplement 08/23/15 10/05/21 History tablet,extended release(part/cryst) (Klor-Con M) levetiracetam 500 mg tablet 1,500 mg PO Q12H seizures 02/23/16 10/05/21 History levetiracetam 1,000 mg tablet 2,000 mg PO QHS seizures 08/05/21 10/04/21 History omeprazole 20 mg capsule,delayed 20 mg PO DAILY GERD 08/05/21 10/05/21 History release alfuzosin 10 mg tablet,extended 10 mg PO QHS 08/15/23 Unknown History release 24 hr citalopram 10 mg tablet 10 mg PO DAILY 08/15/23 Unknown History dexamethasone 2 mg tablet 2 mg PO .am 08/15/23 Unknown History hydrocortisone 20 mg tablet 20 mg PO .am 08/15/23 Unknown History hydrocortisone 5 mg tablet 5 mg PO DAILY 08/15/23 Unknown History lacosamide 100 mg tablet 100 mg PO Q12.TCU 08/15/23 Unknown History levothyroxine 50 mcg tablet 50 mcg PO MOTUWETHFRSA 08/15/23 Unknown History lorlatinib 100 mg tablet (Lorbrena) 100 mg PO DAILY 08/15/23 Unknown History pyridoxine (vitamin B6) 100 mg 200 mg PO DAILY 08/15/23 Unknown History tablet rosuvastatin 10 mg tablet 10 mg PO DAILY 08/15/23 Unknown History rosuvastatin 20 mg tablet 20 mg PO DAILY 08/15/23 Unknown History Allergy/AdvReac Type Severity Reaction Status Date / Time diclofenac (Diclofenac) Allergy Unknown Verified 10/05/21 13:55 diphenhydramine HCl (From Allergy Unknown Verified 10/05/21 13:55 Benadryl) shellfish derived Allergy Unknown Verified 10/05/21 13:55 Family History Uncle Cancer Surgical History History of brain surgery Social History Smoking Status: Never smoker ROS ROS ED ROS Narrative Denies recent illness. Review of Systems ROS Unobtainable: Denies due to encephalopathy Constitutional Constitutional ED: Denies chills or fever(s) Eyes Eyes: Denies blurry vision ENT ENT ED: Denies ear pain Cardiovascular Cardiovascular: Denies chest pain Respiratory/Chest Respiratory/Chest: Denies cough or dyspnea Gastrointestinal Gastrointestinal: Denies abdominal pain Genitourinary Genitourinary ED: Denies dysuria or hematuria Musculoskeletal Musculoskeletal: Denies arthralgias Integumentary Denies abscess or Abrasions Neurologic Neurologic: Denies headache(s) Psychiatric Psychiatric: Denies anxiety Endocrine Endocrinology: Denies polydipsia or polyphagia Hematologic/Lymphatic Hematologic/Lymphatic: Denies easy bleeding, easy bruising or lymphadenopathy Allergic/Immunologic Allergic/Immunologic ED: Denies mouth swelling, tongue swelling or urticaria EXAM Physical Exam Narrative Exam Narrative: 48-year-old male sitting upright in bed. Vital signs are stable and afebrile. Family at bedside. H EENT exam pupils are round reactive light. He has disconjugate right eye is past midline laterally. That is chronic. He has a contusion on the top of the posterior scalp. Mild tenderness. No laceration. Dentition intact. No significant facial trauma. Neck nontender. Well-healed prior surgical scars on the back of his scalp. Trachea midline. Back nontender. No bruising. Resting lumbar spine nontender. Lungs clear to auscultation bilaterally. Heart regular rhythm rate about 90 no murmur. Chest wall and ribs nontender. Abdomen soft nontender. No peritoneal signs. No bruising. Pelvic girdle intact. Moving all 4 extremities. Is a minor abrasion on his right knee but has full flexion extension of the right knee tendons and ligaments are intact. Hips and ankles and feet are nontender. He has mild tenderness to his right shoulder however he has normal range of motion. Elbows and wrist are nontender. Normal policy specialist strength. Neurologically is awake and alert. Answering questions and following commands. GCS of 15. Const Vital Signs: 08/15/23 07:05 08/15/23 07:23 Temperature 97.7 F L Temperature Source Oral Pulse Rate 87 Respiratory Rate 16 Respiratory Effort Normal Non-Labored Respiratory Depth Normal Respiratory Pattern Normal Blood Pressure 131/83 H Blood Pressure Mean 99 Pulse Ox 98 Oxygen Delivery Method Room Air Room Air Positive well nourished and well developed; Negative for cachectic, contractures or unkempt General Appearance ED: well developed and NAD; Negative for unkempt, cachectic or contractures Nutritional Appearance: Negative for cachectic HEENT Reports normocephalic trauma, contusion, hematoma and tenderness; Negative for atraumatic Eyes PERRL and EOMs intact bilaterally Eyes Narrative: Disconjugate gait. General Eye ED: Negative for pale conjunctiva or scleral icterus Neck full ROM, no lymphadenopathy and supple General: Negative for tenderness Chest Wall inspection of chest normal and palpation of chest normal Chest: Negative for other Resp normal respiratory effort, no retractions and clear to auscultation bilaterally Effort and Inspection: Negative for pain with movement Auscultation: Negative for rales, rhonchi or wheezes Cardio regular rate, regular rhythm, S1 normal heart sound, S2 normal heart sound and no murmurs Rate: Negative for bradycardia or tachycardic Rhythm: Negative for abnormal rhythm Bruits: Negative for other GI non-tender, non-distended and no masses Inspection: Negative for abdominal distention Auscultation: normoactive bowel sounds Palpation: soft; Negative for guarding or rebound tenderness present Back/Spine no CVA tenderness General Back: Negative for CVA tenderness Cervical Spine: Negative for cervical spine tenderness Thoracic Spine / Upper Back: Negative for ROM limited Lumbar Spine / Lower Back: Negative for lumbar spinal tenderness Extremity Extremity Narrative: Mild tenderness right shoulder. No deformity. Full range of motion. Neuro oriented x3, CN's II-XII intact bilaterally, moves all extremities and no focal motor deficits Emma Coma Scale: document GCS findings Spontaneous Obeys Commands Oriented 15 Sensorium / Orientation: alert, oriented to person, oriented to place and oriented to time Motor Exam: strength 5/5 throughout Psych mental status grossly normal and thought process normal Appearance: Negative for unkempt Attitude: No agitated Mood & Affect: Negative for depressed, anxious or tearful Skin Lesions: no lesions Rashes: no rashes Trauma: Negative for abrasion MDM MDM MDM Narrative Medical decision making narrative: 48-year-old male history of lung COVID brain mets. On dexamethasone. Was walking down steps today tripped and rolled down multiple steps. CAT scan of his brain and neck will be obtained. Right shoulder x-ray. Otherwise exam is unremarkable. CAT scan of his brain showed small petechial hemorrhages and small subdural. Along with chronic changes from his prior surgery. I discussed all this with the patient and his . On repeat exam at 8:50 AM no change. He is awake and alert. CT C-spine shows no acute abnormality. I have [facility] on page. They have done multiple brain surgeries on this patient. I think it is the best place for him to be observed. is comfortable with that plan. We are starting an IV and getting screening labs. High status excepting the patient ER to ER. He is very stable. We can have a ground squad here in the next 20 minutes he will be sent by that route. I discussed that with the patient's she is comfortable with the plan. History & Record Review Discussion w/independent historian: Patient and Family Additional record(s) reviewed:: Prior inpatient record, Prior outpatient record, Prior ED visit and Prior labs Lab Data Attestation: I reviewed the patient's lab results. Radiography Diagnostic Testing: Clinical Impression(s) from Imaging Studies Brain CT 08/15/23 07:45 IMPRESSION: 1. 5 mm acute petechial hemorrhage of the left cerebellum. 2. Minimal extra-axial hemorrhage along the right side of the tentorium. 3. Stable multifocal encephalomalacic changes of the cerebral and cerebellar hemispheres. Electronically Signed: Michael Perez MD at 8:38 EDT , ADDENDUM: 08/15/23 0901 IMPRESSION: 1. 5 mm acute petechial hemorrhage of the left cerebellum. 2. Minimal extra-axial hemorrhage along the right side of the tentorium. 3. Stable multifocal encephalomalacic changes of the cerebral and cerebellar hemispheres. N.B. : The above Results were Read Back by Michael Perez MD to Saulo Disla MD, and understanding confirmed on 08/15/2023 08:54:55 (ET). Electronically Signed: Michael Perez MD at 8:38 EDT , Cervical Spine CT 08/15/23 07:45 IMPRESSION: Intact cervical spine. As above. Electronically Signed: Michael Perez MD at 8:56 EDT , Shoulder X-Ray 08/15/23 08:09 IMPRESSION: No acute bone or joint abnormality. Electronically Signed: Michael Perez MD at 8:59 EDT , Right shoulder x-ray 4 views interpreted by myself shows no acute fracture or dislocation. There is chronic arthritic changes but no acute process. CT brain small subdural. Small petechial hemorrhages as read by the radiologist and reviewed by me. CT C-spine no fracture. Critical Care Time Critical care time (excluding procedures): 30-74 minutes, Including time spent:, Discussing w/Patient &/or Family/Vat Tender, Discussing w/Consultants, Arranging Admission or Transfer, Performing Direct Patient Care at Bedside and - (33 minutes) Discharge Plan Triage Chief Complaint: Fall ED Provider: Saulo Disla Dx/Rx/DC Orders Clinical Impression: Fall down steps, Intracranial bleed, Subdural bleeding, History of lung cancer, History of cancer metastatic to brain Prescriptions: No Action potassium chloride [Klor-Con M20] 20 MEQ tablet 2 tab PO DAILY calcium carbonate-vitamin D3 1 EACH tablet 2 tab PO DAILY Entrectinib 400 mg PO DAILY levetiracetam 500 MG tablet 1,500 mg PO BREAKFAST omeprazole 20 mg Capsule,Delayed Release(Dr/Ec) 20 mg PO DAILY levetiracetam 1,000 mg Tablet 2,000 mg PO QHS Primary Care Provider: Med Llanes Referrals: Med Llanes MD [Primary Care Provider] - Print Language: Latvian Disposition Disposition: Acute Care Hospital
--- NOTE | 2023-08-15 08:09 | RAD_ITS ---
EXAM: XR RIGHT SHOULDER COMPLETE, 2 OR MORE VIEWS CLINICAL INDICATION: fall TECHNIQUE: Two or more views of the right shoulder. COMPARISON: No relevant prior studies available. FINDINGS: BONES/JOINTS: No acute fracture or subluxation. Heterotopic bone noted adjacent to the AC joint may be related to old trauma/arthritis. SOFT TISSUES: Normal. No soft tissue swelling or gas. No radiopaque foreign body. RAD/Shoulder min 2 Views IMPRESSION: No acute bone or joint abnormality. Electronically Signed: Michael Perez MD at 8:59 EDT ,
[2023-08-15 09:04] VITALS: BP 138/81; PULSE 81; RESP 18; TEMP 36.5; O2SAT 97
[2023-08-15 09:23] LABS: Absolute Lymphocyte Count 3.25 X10^3/uL (0.83-4.51); Absolute Neutrophil Count 4.8 X10^3/uL (2.0-7.7); Basophil# 0.05 X10^3/uL; Basophil% 0.5 % (0-1); Eosinophil# 0.18 X10^3/uL; Eosinophils% 1.9 % (0-5); Hematocrit 39.6 % (40-54); Hemoglobin 12.3 g/dL (13.0-16.5); Lymphocyte # 3.25 X10^3/ul (0.83-4.51); Lymphocyte % 34.9 % (19-41); Mean Corp Hgb Conc 31.1 g/dL (32-36); Mean Corpuscular Hgb 29.4 pg (27.0-32.0); Mean Corpuscular Volume 94.5 fL (80-94); Mean Platelet Vol. 9.5 fl (6.2-12.0); Monocyte# 0.94 X10^3/uL; Monocyte% 10.1 % (0-10); NRBC Flagged by Analyzer 0 % (0-5); Neutrophil # 4.81 X10^3/uL (2.7-7.7); Neutrophil % 51.8 % (47-70); Platelet Count 150 K/mm3 (150-450); RBC Distribution Width CV 16.8 % (11.6-14.6); RBC Distribution Width SD 58.4 fl (35.1-43.9); Red Blood Count 4.19 M/mm3 (4.6-6.2); White Blood Count 9.3 K/mm3 (4.4-11.0)
--- NOTE | 2023-08-15 09:26 | NURSING ---
[facility] called and per transfer line did not require report
[2023-08-15 09:40] VITALS: BP 138/82; PULSE 83; RESP 18; TEMP 36.5; O2SAT 97
--- NOTE | 2023-08-15 09:43 | ED.RN ---
family concerned that pt hasnt taken am meds that he needs ok per dr. ruiz to give with small sips water. pt bedside dysphagia screen given and passed. transfer consent signed per pt's and pt dc'd to [facility] via squad
[2023-08-15 09:52] LABS: Anion Gap 5 (5-15); BUN 16 mg/dL (7-18); BUN/Creat Ratio 24.3 RATIO (10-20); Calcium,Total 9.8 mg/dL (8.5-10.1); Chloride 106 mmol/L (98-107); Creatinine, Serum 0.66 mg/dL (0.70-1.30); EST Glomerular Filtration Rate 138 mL/min (>60); Est Glom Filt Rate - Afr Amer 167 mL/min (>60); Estimated Creatinine Clearance 173.53 ml/min; Glucose 79 mg/dL (74-106); Sodium Level 139 mmol/L (136-145)
== END 2023-08-15 09:50 | disposition short-term general hospital (02) ==
PROVIDERS: Emergency Provider Emergency Medicine; PCP Family Medicine; Visit Provider Emergency Medicine
DX: S06.370A Contusion, laceration, and hemorrhage of cerebellum without loss of consciousness, initial encounter (principal); S06.5X0A Traumatic subdural hemorrhage without loss of consciousness, initial encounter; Z79.890 Hormone replacement therapy; Z79.899 Other long term (current) drug therapy; W10.9XXA Fall (on) (from) unspecified stairs and steps, initial encounter; Z85.118 Personal history of other malignant neoplasm of bronchus and lung; Z85.841 Personal history of malignant neoplasm of brain; M25.511 Pain in right shoulder
CPT/HCPCS: 70450; 72125; 73030; 80048; 85025; 99284; A4216

== ENCOUNTER → 2023-08-19 | Outpatient (CLI) | payer BC, SELFPAY ==
[2023-08-19 17:41] LABS: T3 Total - Triiodothyronine 0.95 ng/mL (0.6-1.81)
[2023-08-19 17:45] LABS: T4 Free Direct 0.63 ng/dL (0.76-1.46); Thyroid Stim Hormone (TSH) 1.77 uIU/mL (0.358-3.74)
== END | disposition home or self-care (01) ==
LOC: LAB 16:32
PROVIDERS: PCP Family Medicine
DX: E03.9 Hypothyroidism, unspecified (principal)
CPT/HCPCS: 36415; 84439; 84443; 84480

== ENCOUNTER 2023-09-12 12:43 | Emergency (ER) | payer BC, SELFPAY ==
[2023-09-12 12:45] VITALS: BP 112/75; PULSE 120; RESP 19; TEMP 37.2; O2SAT 94
--- NOTE | 2023-09-12 13:29 | EX.ED.DYSGE1 ---
HPI History of Present Illness Chief Complaint: Weakness Informant: patient and spouse/S.O. 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 She states he keeps leaning to the right when he is trying to walk with his rollator and she is concerned maybe he has a weakness to the right but she can confirm that he has been moving everything. She is not sure exactly how long this has been the case. He does have known brain metastases but does not have chronic unilateral focal neurologic symptoms. He does have a history of a lazy eye which is unchanged. The patient states when he is not coughing he does not have any dyspnea or chest pain. He has a history of a right lower lobe lobectomy. Spouse did a home COVID test yesterday that was negative. No one else in the household has been tested recently for any respiratory pathogens. [facility] Medical History (Updated 09/12/23 @ 16:[address] Holden Gorman MD) CPAP (continuous positive airway pressure) dependence Sleep apnea Seizure Lung cancer metastatic to brain Home Medications ?Medication ?Instructions ?Recorded ?Last Taken ?Type Entrectinib 400 mg PO DAILY chemotherapy 08/23/15 10/05/21 History calcium carbonate 600 mg-vitamin 2 tab PO DAILY supplement 08/23/15 10/04/21 History D3 20 mcg (800 unit) tablet potassium chloride 20 mEq 30 meq PO DAILY supplement 08/23/15 10/05/21 History tablet,extended release(part/cryst) (Klor-Con M) levetiracetam 1,000 mg tablet 2,000 mg PO QHS seizures 08/05/21 10/04/21 History omeprazole 20 mg capsule,delayed 20 mg PO DAILY GERD 08/05/21 10/05/21 History release alfuzosin 10 mg tablet,extended 10 mg PO QHS 08/15/23 Unknown History release 24 hr citalopram 10 mg tablet 10 mg PO DAILY 08/15/23 Unknown History dexamethasone 2 mg tablet 2 mg PO .am 08/15/23 Unknown History hydrocortisone 20 mg tablet 20 mg PO .am 08/15/23 Unknown History hydrocortisone 5 mg tablet 5 mg PO DAILY 08/15/23 Unknown History lacosamide 100 mg tablet 100 mg PO Q12.TCU 08/15/23 Unknown History levothyroxine 50 mcg tablet 50 mcg PO MOTUWETHFRSA 08/15/23 Unknown History lorlatinib 100 mg tablet (Lorbrena) 100 mg PO DAILY 08/15/23 Unknown History pyridoxine (vitamin B6) 100 mg 200 mg PO DAILY 08/15/23 Unknown History tablet rosuvastatin 10 mg tablet 10 mg PO DAILY 08/15/23 Unknown History rosuvastatin 20 mg tablet 20 mg PO DAILY 08/15/23 Unknown History levetiracetam 750 mg tablet 1,500 mg PO Q12.TCU 09/12/23 Unknown History tamsulosin 0.4 mg capsule 0.4 mg PO BID 09/12/23 Unknown History Allergy/AdvReac Type Severity Reaction Status Date / Time diclofenac (Diclofenac) Allergy Unknown Verified 10/05/21 13:55 diphenhydramine HCl (From Allergy Unknown Verified 10/05/21 13:55 Benadryl) shellfish derived Allergy Unknown Verified 10/05/21 13:55 Family History Uncle Cancer Surgical History (Updated 09/12/23 @ 13:[address] Holden Gorman MD) History of lung surgery History of brain surgery Social History Smoking Status: Never smoker ROS ROS ED Constitutional Constitutional ED: Reports chills, fatigue and fever(s) Eyes Eyes: Denies change in vision or diplopia ENT ENT ED: Denies rhinorrhea or sore throat Cardiovascular Cardiovascular: Denies chest pain or palpitations Respiratory/Chest Respiratory/Chest: Reports cough; Denies dyspnea or sputum Gastrointestinal Gastrointestinal: Denies abdominal pain, diarrhea, nausea or vomiting Genitourinary Genitourinary ED: Denies dysuria or hematuria Musculoskeletal Musculoskeletal: Denies back pain or neck pain Integumentary Denies abscess or rash Neurologic Neurologic: Reports weakness; Denies headache(s) or paresthesias Psychiatric Psychiatric: Denies anxiety or suicidal thoughts EXAM Physical Exam Const Vital Signs: 09/12/23 12:45 09/12/23 13:42 09/12/23 13:45 Temperature 99.0 F Temperature Source Temporal Pulse Rate 120 H 120 H Respiratory Rate 19 H 28 H Blood Pressure 112/75 Blood Pressure Mean 87 Pulse Ox 94 93 Oxygen Delivery Method Room Air Room Air Room Air 09/12/23 13:49 09/12/23 15:00 09/12/23 16:00 Temperature 98.7 F 98.5 F 98.9 F Temperature Source Oral Oral Temporal Pulse Rate 105 H 78 101 H Respiratory Rate 22 H 19 H 18 Blood Pressure 119/75 121/90 H 114/69 Blood Pressure Mean 89 100 84 Pulse Ox 95 93 92 Oxygen Delivery Method Room Air Room Air Positive well nourished and well developed General Appearance ED: well developed and NAD HEENT Reports moist mucous membranes normocephalic and atraumatic Eyes PERRL and EOMs intact bilaterally Eyes Narrative: Lazy eye at baseline according to spouse Neck full ROM and supple Resp normal respiratory effort and clear to auscultation bilaterally Resp Narrative: Decreased breath sounds right base and area of well-healed surgical scar Cardio regular rate, regular rhythm and no murmurs GI non-tender and non-distended Auscultation: normoactive bowel sounds Palpation: soft Back/Spine no CVA tenderness General Back: other FROM Extremity normal to inspection General Extremety ED: Negative for edema, pulses abnormal or tenderness General Extremity: Negative for edema or pulses abnormal Neuro oriented x3, CN's II-XII intact bilaterally and no sensory deficits noted Neuro Narrative: Weak right upper extremity compared with the left with some drift but can resist against gravity without difficulty. No facial droop. No other focal weakness Sensorium / Orientation: awake and alert Psych mental status grossly normal Skin no rashes or lesions noted and no wounds MDM MDM MDM Narrative Medical decision making narrative: 2 view chest x-ray on my interpretation is negative for acute infiltrate, radiology is in agreement noting that he still has chronic right hemidiaphragmatic elevation consistent with a right lower lobe lobectomy. Urinalysis negative for infection. CT of the head was obtained given his lateralizing symptoms today, I reviewed the images and the report which I agree with, it shows chronic changes that are stable and unchanged. COVID/influenza/RSV is negative, and his blood counts are excellent with a total white blood count of 10.4. He is on an oral chemotherapeutic agent, entrectinib. At this time he does not have severe immunocompromise status, his vital signs are normal he is oxygenating well, and I think it is very likely that he has a viral infection given the history, so would not recommend antibiotic at this time. Discharged in stable condition discussed with patient and significant other, they understand are comfortable with that plan. Lab Data Attestation: I reviewed the patient's lab results. Labs: Laboratory Results - last 24 hr 09/12/23 09/12/23 09/12/23 13:36 14:19 15:16 WBC 10.4 RBC 4.12 L Hgb 12.6 L Hct 38.8 L MCV 94.2 H MCH 30.6 MCHC 32.5 RDW Std Deviation 57.1 H RDW Coeff of Maryse 16.4 H Plt Count 129 L MPV 9.1 Immature Gran % (Auto) 0.500 Neut % (Auto) 77.4 H Lymph % (Auto) 8.4 L [place] % (Auto) 12.2 H Eos % (Auto) 1.1 Baso % (Auto) 0.4 Absolute Neuts (auto) 8.1 H Absolute Lymphs (auto) 0.88 Nucleated RBC % 0 PT 13.6 INR 1.0 APTT 20.4 L Sodium 137 Potassium 4.3 Chloride 104 Carbon Dioxide 27.0 Anion Gap 6 BUN 14 Creatinine 0.72 Est GFR (MDRD) Af Amer 152 Est GFR (MDRD) Non-Af 125 BUN/Creatinine Ratio 19.5 Glucose 101 Lactic Acid 0.8 Calcium 8.9 Total Bilirubin 0.30 AST 31 ALT 57 Alkaline Phosphatase 63 Troponin I High Sens 6 Total Protein 6.9 Albumin 3.3 Globulin 3.6 Albumin/Globulin Ratio 0.9 Urine Color Yellow Urine Clarity Sl. Cloudy Urine pH 8.0 Ur Specific Pyote 1.010 Urine Protein Negative Urine Glucose (UA) Normal Urine Ketones Negative Urine Occult Blood 25 H Urine Nitrite Negative Urine Bilirubin Negative Urine Urobilinogen Normal Ur Leukocyte Esterase Negative Urine RBC 0 SEEN Urine WBC 0 SEEN Ur Squamous Epith Cells 0 SEEN Urine Bacteria 0 SEEN Urine Mucus 0 SEEN Radiography Diagnostic Testing: Clinical Impression(s) from Imaging Studies Brain CT 09/12/23 14:22 IMPRESSION: Stable examination. Electronically Signed: Frederick sEcobedo MD at 14:39 EDT , Chest X-Ray 09/12/23 14:25 IMPRESSION: Stable examination. Electronically Signed: Frederick Escobedo MD at 14:47 EDT , Discharge Plan Triage Chief Complaint: Weakness Other Complaint: Cold Sx ED Provider: Holden Gorman Dx/Rx/DC Orders Clinical Impression: Viral URI Instructions: ED URI, Viral, No Abx (Adult) Prescriptions: No Action potassium chloride [Klor-Con M20] 20 MEQ tablet 30 meq PO DAILY calcium carbonate-vitamin D3 1 EACH tablet 2 tab PO DAILY Entrectinib 400 mg PO DAILY omeprazole 20 mg Capsule,Delayed Release(Dr/Ec) 20 mg PO DAILY levetiracetam 1,000 mg Tablet 2,000 mg PO QHS tamsulosin 0.4 mg capsule 0.4 mg PO BID levetiracetam 750 mg tablet 1,500 mg PO Q12.TCU citalopram 10 mg tablet 10 mg PO DAILY dexamethasone 2 mg tablet 2 mg PO .am hydrocortisone 20 mg tablet 20 mg PO .am alfuzosin 10 mg tablet extended release 24 hr 10 mg PO QHS hydrocortisone 5 mg tablet 5 mg PO DAILY levothyroxine 50 mcg tablet 50 mcg PO MOTUWETHFRSA Rx Instructions: pt takes 100mcg on sundays pyridoxine (vitamin B6) 100 mg tablet 200 mg PO DAILY rosuvastatin 10 mg tablet 10 mg PO DAILY rosuvastatin 20 mg tablet 20 mg PO DAILY lacosamide 100 mg tablet 100 mg PO Q12.TCU Lorbrena 100 mg tablet 100 mg PO DAILY Primary Care Provider: Med Llanes Referrals: Med Llanes MD [Primary Care Provider] - 1 Week if not improving Print Language: Venezuelan Disposition Disposition: Home, Self Care
[2023-09-12] MEDS: 0.9% Normal Saline (500mL Bag) 500 ML 999 ML IV (13:41)
[2023-09-12 13:45] VITALS: PULSE 120; RESP 28; O2SAT 93
[2023-09-12 13:49] VITALS: BP 119/75; PULSE 105; RESP 22; TEMP 37.1; O2SAT 95
[2023-09-12 14:08] LABS: Prothrombin Time (Protime)PT. 13.6 SECONDS (11.7-14.9)
[2023-09-12 14:14] LABS: Partial Thromboplast Time 20.4 Seconds (24.1-36.2)
[2023-09-12 14:17] LABS: ALB/GLOB Ratio 0.9 RATIO (0.9-2.4); AST(SGOT) 31 U/L (15-37); Alanine Aminotransfer ALT/SGPT 57 U/L (16-61); Albumin, Serum 3.3 g/dL (3.2-5.0); Alkaline Phosphatase 63 U/L (45-117); Anion Gap 6 (5-15); BUN 14 mg/dL (7-18); BUN/Creat Ratio 19.5 RATIO (10-20); Calcium,Total 8.9 mg/dL (8.5-10.1); Chloride 104 mmol/L (98-107); Creatinine, Serum 0.72 mg/dL (0.70-1.30); EST Glomerular Filtration Rate 125 mL/min (>60); Est Glom Filt Rate - Afr Amer 152 mL/min (>60); Globulin 3.6 g/dL (2.2-4.2); Glucose 101 mg/dL (74-106); Potassium 4.3 mmol/L (3.5-5.1); Protein, Total 6.9 g/dL (6.4-8.2); Sodium Level 137 mmol/L (136-145); Troponin-I HS 6 pg/mL (3.0-78.0)
--- NOTE | 2023-09-12 14:22 | CT_ITS ---
STUDY: CT BRAIN WITHOUT CONTRAST REASON FOR EXAM: Male, 48 years old. Right sided weakness, hx brain metastases RADIATION DOSAGE (If Supplied By Facility): CTDIvol = ( 47.06 ) mGy, DLP = ( 890.33 ) mGycm TECHNIQUE: Transaxial CT imaging of the brain was performed without administration of intravenous contrast material. Individualized dose optimization techniques were used for this CT. COMPARISON: Comparison is made with prior study dated August 15, 2023. FINDINGS: Normal soft tissue structures. Prior right posterior parietal craniectomy. Normal size ventricles and extra-axial spaces for the patient''s age. There are areas of decreased attenuation within the white matter tracts of the supratentorial brain, consistent with microvascular disease changes. Stable lacunar infarct in the posterior aspect of the right basal ganglia. Normal brainstem. Stable calcification in the posterior aspect of both occipital lobes posteriorly. Atrophy of the cerebellum. Stable 5 mm rounded hyperdensity in the posterior medial aspect of the left cerebellum. Encephalomalacia in the right cerebellar hemisphere. Encephalomalacia in the posterior medial aspect of the right occipital lobe. There is no intracranial hemorrhage. There are no findings of an acute ischemic infarction. Normal visualized paranasal sinuses. CT/Brain/Head without Contrast IMPRESSION: Stable examination. Electronically Signed: Frederick Escobedo MD at 14:39 EDT ,
[2023-09-12 14:25] LABS: Bacteria 0 SEEN /hpf (None Seen); Mucous, Urine 0 SEEN /hpf (<or=2+); Red Blood Cells-Urine 0 SEEN /hpf (0-5); Squamous Epithelial Cells - UA 0 SEEN /hpf (0-5); White Blood Cells 0 SEEN /hpf (0-5)
--- NOTE | 2023-09-12 14:25 | RAD_ITS ---
STUDY: X-RAY CHEST REASON FOR EXAM: Male, 48 years old. Cough, fever . Prior right lobectomy for lung cancer TECHNIQUE: Single AP portable view of the chest. COMPARISON: Comparison is made with prior study dated October 05, 2001. FINDINGS: EKG electrodes are seen. Stable marked elevation of the right hemidiaphragm. Stable right apical pleural thickening. There is no demonstrated pleural abnormality. Normal size heart. Normal mediastinum and shell. Normal visualized pulmonary arteries. Normal visualized aortic arch and descending thoracic aorta. Normal visualized thoracic spine. Normal visualized ribs, clavicles, and shoulders. There is no demonstrated abnormality of the visualized soft tissue structures of the upper abdomen. RAD/Chest 1 View (Portable) IMPRESSION: Stable examination. Electronically Signed: Frederick Escobedo MD at 14:47 EDT ,
[2023-09-12 14:29] LABS: Color, Urine Yellow (Yellow); Glucose, Dipstick Normal (Normal); Ketone-Dipstick Negative (Negative); Leukocyte Esterase-Dipstick Negative /ul (Negative); Nitrite-Dipstick Negative (Negative); Occult Blood-Urine 25 /ul (Negative); Protein-Dipstick Negative (Negative); Urine Bilirubin Dipstick Negative (Negative); Urine Clarity Sl. Cloudy (Clear); Urine Urobilinogen Normal (Normal)
[2023-09-12 14:59] LABS: Lactic Acid 0.8 mmol/L (0.4-1.9)
[2023-09-12 15:00] VITALS: BP 121/90; PULSE 78; RESP 19; TEMP 36.9; O2SAT 93
[2023-09-12 15:33] LABS: Absolute Lymphocyte Count 0.88 X10^3/uL (0.83-4.51); Absolute Neutrophil Count 8.1 X10^3/uL (2.0-7.7); Basophil# 0.04 X10^3/uL; Basophil% 0.4 % (0-1); Eosinophil# 0.11 X10^3/uL; Eosinophils% 1.1 % (0-5); Hematocrit 38.8 % (40-54); Hemoglobin 12.6 g/dL (13.0-16.5); Lymphocyte # 0.88 X10^3/ul (0.83-4.51); Lymphocyte % 8.4 % (19-41); Mean Corp Hgb Conc 32.5 g/dL (32-36); Mean Corpuscular Hgb 30.6 pg (27.0-32.0); Mean Corpuscular Volume 94.2 fL (80-94); Mean Platelet Vol. 9.1 fl (6.2-12.0); Monocyte# 1.27 X10^3/uL; Monocyte% 12.2 % (0-10); NRBC Flagged by Analyzer 0 % (0-5); Neutrophil # 8.07 X10^3/uL (2.7-7.7); Neutrophil % 77.4 % (47-70); Platelet Count 129 K/mm3 (150-450); RBC Distribution Width CV 16.4 % (11.6-14.6); RBC Distribution Width SD 57.1 fl (35.1-43.9); Red Blood Count 4.12 M/mm3 (4.6-6.2); White Blood Count 10.4 K/mm3 (4.4-11.0)
[2023-09-12 16:00] VITALS: BP 114/69; PULSE 101; RESP 18; TEMP 37.2; O2SAT 92
[2023-09-12 17:05] VITALS: BP 116/71; PULSE 96; RESP 20; TEMP 37.2; O2SAT 94
== END 2023-09-12 17:07 | disposition home or self-care (01) ==
PROVIDERS: Emergency Provider Emergency Medicine; PCP Family Medicine; Visit Provider Emergency Medicine
DX: J06.9 Acute upper respiratory infection, unspecified (principal); C79.31 Secondary malignant neoplasm of brain; C34.90 Malignant neoplasm of unspecified part of unspecified bronchus or lung
CPT/HCPCS: 36415; 70450; 71045; 80053; 81001; 83605; 84484; 85025; 85610; 85730; 87040; 87631; 96360; 96361; 99284; J7030; A4216

== ENCOUNTER 2024-02-29 16:47 | Emergency (ER) | payer BC, SELFPAY ==
[2024-02-29 16:48] VITALS: BP 139/85; PULSE 88; RESP 16; TEMP 36.8; O2SAT 99; BMI 42.6
[2024-02-29 16:53] VITALS: O2SAT 98
--- NOTE | 2024-02-29 18:04 | CT_ITS ---
EXAM: CT HEAD WITHOUT INTRAVENOUS CONTRAST CLINICAL INDICATION: trauma TECHNIQUE: Multiple axial images were obtained of the head without intravenous contrast. This CT exam was performed using one or more of the following dose reduction techniques: automated exposure control, adjustment of the mA and/or kV according to patient size, and/or use of iterative reconstruction technique. COMPARISON: 09/12/2023 FINDINGS: BRAIN AND EXTRA-AXIAL SPACES: There is also encephalomalacia seen within the right occipital lobe which is stable. There is enlargement of ventricular system and cortical sulci. There is hypoattenuation in the periventricular white matter. There are stable calcifications within the occipital lobes bilaterally. No intra- or extra-axial hemorrhage. BONES/JOINTS: There are postsurgical changes from a right posterior fossa craniotomy. There is encephalomalacia seen in the right cerebellar hemisphere. There is also a right parietal and occipital bone craniotomy. No discrete lytic or blastic abnormalities. SINUSES: Unremarkable as visualized. Clear. MASTOID AIR CELLS: Unremarkable. Clear. ORBITS: Visualized globes, extraocular muscles, optic nerves and retrobulbar fat appear unremarkable. CT/Brain/Head without Contrast IMPRESSION: 1. No acute intracranial abnormality. There has been no change in the reference examination. 2. Postsurgical changes with right-sided craniotomy defects. There is encephalomalacia in the right cerebellum and right occipital lobe. There are stable calcifications in both occipital lobes. 3. Stable senescent change with small vessel ischemia. Electronically Signed: Cesario Bishop MD at 18:59 EST ,
--- NOTE | 2024-02-29 18:05 | EDS_ITS ---
HPI HPI - Fall History of Present Illness Chief Complaint: Fall Informant: patient and family Narrative Narrative: 49-year-old with accidental fall today just prior to arrival. He has a history of brain cancer, he has had surgery remotely, he is on chemotherapy just darted the first infusion of a Avastin and saw his oncologist in [place] yesterday, today this morning he was at baseline, he uses a walker to get around due to unsteadiness from the brain cancer and surgeries, he went to get a cookie and on his way back to the table he went to sit down and accidentally sat down backwards without pulling the chair out, so he landed on the ground on his tailbone which hurts, and also hit the back of his head against the floor. No loss of consciousness, vomiting, or severe headaches. No focal neurologic symptoms that are new. He takes no anticoagulants. He denies any neck or other back pain. [facility] Medical History CPAP (continuous positive airway pressure) dependence Sleep apnea Seizure Lung cancer metastatic to brain Home Medications ?Medication ?Instructions ?Recorded ?Last Taken ?Type Entrectinib 400 mg PO DAILY chemotherapy 08/23/15 10/05/21 History calcium 600 mg (as 2 tab PO DAILY supplement 08/23/15 10/04/21 History carbonate)-vitamin D3 20 mcg (800 unit) tablet potassium chloride 20 mEq 30 meq PO DAILY supplement 08/23/15 10/05/21 History tablet,extended release(part/cryst) (Klor-Con M) levetiracetam 1,000 mg tablet 2,000 mg PO QHS seizures 08/05/21 10/04/21 History omeprazole 20 mg capsule,delayed 20 mg PO DAILY GERD 08/05/21 10/05/21 History release alfuzosin 10 mg tablet,extended 10 mg PO QHS 08/15/23 Unknown History release 24 hr citalopram 10 mg tablet 10 mg PO DAILY 08/15/23 Unknown History dexamethasone 2 mg tablet 1 mg PO .am 08/15/23 Unknown History hydrocortisone 20 mg tablet 20 mg PO .am 08/15/23 Unknown History hydrocortisone 5 mg tablet 5 mg PO DAILY 08/15/23 Unknown History lacosamide 100 mg tablet 100 mg PO Q12.TCU 08/15/23 Unknown History levothyroxine 50 mcg tablet 50 mcg PO MOTUWETHFRSA 08/15/23 Unknown History lorlatinib 100 mg tablet (Lorbrena) 100 mg PO DAILY 08/15/23 Unknown History pyridoxine (vitamin B6) 100 mg 200 mg PO DAILY 08/15/23 Unknown History tablet rosuvastatin 10 mg tablet 10 mg PO DAILY 08/15/23 Unknown History rosuvastatin 20 mg tablet 20 mg PO DAILY 08/15/23 Unknown History levetiracetam 750 mg tablet 1,500 mg PO Q12.TCU 09/12/23 Unknown History tamsulosin 0.4 mg capsule 0.4 mg PO BID 09/12/23 Unknown History Allergy/AdvReac Type Severity Reaction Status Date / Time diclofenac (Diclofenac) Allergy Unknown Verified 10/05/21 13:55 diphenhydramine HCl (From Allergy Unknown Verified 10/05/21 13:55 Benadryl) shellfish derived Allergy Unknown Verified 10/05/21 13:55 Family History Uncle Cancer Surgical History History of lung surgery History of brain surgery Social History Smoking Status: Never smoker ROS ROS ED Eyes Eyes: Denies change in vision Cardiovascular Cardiovascular: Denies chest pain Respiratory/Chest Respiratory/Chest: Denies dyspnea Gastrointestinal Gastrointestinal: Denies nausea or vomiting Musculoskeletal Musculoskeletal: Reports back pain; Denies neck pain Integumentary Denies laceration Neurologic Neurologic: Reports headache(s); Denies paresthesias or weakness EXAM Physical Exam Const Vital Signs: 02/29/24 16:48 02/29/24 16:53 02/29/24 18:48 Temperature 98.3 F Temperature Source Oral Pulse Rate 88 78 Respiratory Rate 16 16 Respiratory Effort Normal Non-Labored Respiratory Depth Normal Respiratory Pattern Normal Blood Pressure 139/85 H 138/78 H Blood Pressure Mean 103 98 Pulse Ox 99 98 98 Oxygen Delivery Method Room Air Room Air Room Air Positive well nourished and well developed General Appearance ED: well developed and NAD HEENT Reports moist mucous membranes normocephalic and atraumatic Eyes PERRL and EOMs intact bilaterally Neck full ROM and supple General: Negative for tenderness Resp normal respiratory effort and clear to auscultation bilaterally Cardio regular rate, regular rhythm and no murmurs GI non-tender and non-distended Back/Spine Back/Spine Narrative: Mildly tender coccyx no crepitance General Back: other FROM Cervical Spine: Negative for cervical spine tenderness Thoracic Spine / Upper Back: Negative for thoracic spinal tenderness Lumbar Spine / Lower Back: Negative for lumbar spinal tenderness Extremity normal to inspection Extremity Narrative: FROM x 4 w/o pain General Extremety ED: Negative for pulses abnormal or tenderness General Extremity: Negative for pulses abnormal Neuro oriented x3, CN's II-XII intact bilaterally and no sensory deficits noted Sensorium / Orientation: awake and alert Motor Exam: general weakness Psych mental status grossly normal and thought process normal Skin no rashes or lesions noted and no wounds MDM MDM MDM Narrative Medical decision making narrative: CT of the head was obtained in order to rule out intracranial injury, I reviewed the images and report which I agree with, negative for anything acute. Old changes including encephalomalacia are noted. Also did pictures of his sacrum/coccyx, on my interpretation I see nothing acute. According to radiology's interpretation which I reviewed, they are questioning the possibility of a minimally displaced fracture of the coccyx. Patient does not have severe pain here. Radiology is recommending a CT, but I do not think is going to change the treatment unless he started having rectal bleeding which she has not had. Therefore I do not think we have to send him for CT. The sacrum appears to be unremarkable and his pelvis is stable, therefore this is a clinically insignificant fracture if present, which I doubt clinically. Discharged home with supportive care advised. Radiography Diagnostic Testing: Clinical Impression(s) from Imaging Studies Brain CT 02/29/24 18:04 IMPRESSION: 1. No acute intracranial abnormality. There has been no change in the reference examination. 2. Postsurgical changes with right-sided craniotomy defects. There is encephalomalacia in the right cerebellum and right occipital lobe. There are stable calcifications in both occipital lobes. 3. Stable senescent change with small vessel ischemia. Electronically Signed: Cesario Bishop MD at 18:59 EST , Sacrum and Coccyx X-Ray 02/29/24 18:25 IMPRESSION: Questionable minimally displaced fracture of the coccyx. Recommend CT. Electronically Signed: Joey Sanchez MD at 19:07 EST , Discharge Plan Triage Chief Complaint: Fall ED Provider: Holden Gorman Dx/Rx/DC Orders Clinical Impression: Closed head injury without loss of consciousness, Contusion of coccyx, Fall, accidental Instructions: ED Coccyx or Sacrum Contusion, ED Head Injury (Adult) Prescriptions: No Action potassium chloride [Klor-Con M20] 20 MEQ tablet 30 meq PO DAILY calcium carbonate-vitamin D3 1 EACH tablet 2 tab PO DAILY Entrectinib 400 mg PO DAILY omeprazole 20 mg Capsule,Delayed Release(Dr/Ec) 20 mg PO DAILY levetiracetam 1,000 mg Tablet 2,000 mg PO QHS tamsulosin 0.4 mg capsule 0.4 mg PO BID levetiracetam 750 mg tablet 1,500 mg PO Q12.TCU citalopram 10 mg tablet 10 mg PO DAILY dexamethasone 2 mg tablet 1 mg PO .am hydrocortisone 20 mg tablet 20 mg PO .am alfuzosin 10 mg tablet extended release 24 hr 10 mg PO QHS hydrocortisone 5 mg tablet 5 mg PO DAILY levothyroxine 50 mcg tablet 50 mcg PO MOTUWETHFRSA Rx Instructions: pt takes 100mcg on sundays pyridoxine (vitamin B6) 100 mg tablet 200 mg PO DAILY rosuvastatin 10 mg tablet 10 mg PO DAILY rosuvastatin 20 mg tablet 20 mg PO DAILY lacosamide 100 mg tablet 100 mg PO Q12.TCU Lorbrena 100 mg tablet 100 mg PO DAILY Primary Care Provider: Med Llanes Referrals: Med Llanes MD [Primary Care Provider] - Print Language: [place]i Disposition Disposition: Home, Self Care
--- NOTE | 2024-02-29 18:25 | RAD_ITS ---
INDICATION: fall/injury EXAMINATION/TECHNIQUE: X-RAY - XR Sacrum/Coccyx Min 2 Views COMPARISON: No relevant prior comparison study available FINDINGS: SACRUM/COCCYX: Questionable minimally displaced fracture of the coccyx. No destructive or sclerotic lesions. Note that overlapping bowel shadows may however obscure fine detail in the frontal view. SACRO-ILIAC JOINTS: The articular structures are unremarkable. SOFT TISSUES: No soft tissue swelling or gas. RAD/Sacrum-Coccyx min 2 Views IMPRESSION: Questionable minimally displaced fracture of the coccyx. Recommend CT. Electronically Signed: Joey Sanchez MD at 19:07 EST ,
[2024-02-29 18:48] VITALS: BP 138/78; PULSE 78; RESP 16; O2SAT 98
[2024-02-29 20:00] VITALS: PULSE 88; RESP 16; O2SAT 99
[2024-02-29 20:15] VITALS: BP 159/102; PULSE 87; RESP 16; TEMP 36.8; O2SAT 96
== END 2024-02-29 20:33 | disposition home or self-care (01) ==
PROVIDERS: Emergency Provider Emergency Medicine; PCP Family Medicine; Visit Provider Emergency Medicine
DX: S09.90XA Unspecified injury of head, initial encounter (principal); C71.9 Malignant neoplasm of brain, unspecified; S30.0XXA Contusion of lower back and pelvis, initial encounter; M53.3 Sacrococcygeal disorders, not elsewhere classified; W19.XXXA Unspecified fall, initial encounter
CPT/HCPCS: 70450; 72220; 99284